=== PATIENT | female | born 1990 | race Caucasian/White ===

== ENCOUNTER 2017-04-15 20:37 | Emergency (ER) | payer MEDICAID, SELFPAY | END 2017-04-15 23:29 | disposition still patient (30) | PROVIDERS: Emergency Provider Emergency Medicine; Visit Provider Emergency Medicine | DX: R19.7 Diarrhea, unspecified (principal); E03.9 Hypothyroidism, unspecified; F17.210 Nicotine dependence, cigarettes, uncomplicated; Z79.3 Long term (current) use of hormonal contraceptives; Z79.899 Other long term (current) drug therapy | CPT/HCPCS: 74176; 80053; 81003; 81025; 82150; 83690; 85025; 96365; 96375; 99284; J2405 ==

== ENCOUNTER → 2018-01-19 13:12 | Outpatient (REF) | payer MEDICAID, SELFPAY ==
[2018-01-19 17:47] LABS: Basophils % 0.8 % (0.1-2.0); Eosinophils # 0.1 K/mm3 (0.0-0.4); Eosinophils % 1.6 % (0.1-12.0); Hematocrit 44.8 % (37.0-47.0); Hemoglobin 14.8 g/dL (12.2-16.2); Lymphocytes # 1.8 K/mm3 (0.7-4.5); Lymphocytes % 32.1 K/mm3 (10-50); Mean Platelet Volume 7.7 fl (7.4-10.4); Monocytes # 0.3 K/mm3 (0.1-1.0); Neutrophils # 3.4 K/mm3 (1.8-7.8); Neutrophils % 59.6 % (37.0-80.0); Platelet Count 385 K/mm3 (142-424); Red Blood Count 5.27 M/mm3 (4.20-5.40); Red Cell Distribution Width 13.4 % (11.5-17.5); White Blood Count 5.7 K/mm3 (4.8-10.8)
[2018-01-19 18:51] LABS: Alanine Aminotransferase 183 U/L (12-78); Albumin Level 3.7 gm/dL (3.4-5.0); Albumin/Globulin Ratio 0.9 (1.1-1.8); Alkaline Phosphatase 156 U/L (46-116); Anion Gap 15.6 mEq/L (5-15); Aspartate Amino Transferase 164 U/L (15-37); Bilirubin,Total 0.4 mg/dL (0.2-1.0); Blood Urea Nitrogen 7 mg/dL (7-18); Calcium 9.4 mg/dL (8.5-10.1); Carbon Dioxide 26 mmol/L (21.0-32.0); Chloride 105 mmol/L (98-107); Chol/HDL Ratio 5.5 (1-3.5); Cholesterol 238 mg/dL (140-200); Creatinine,Serum 0.77 mg/dL (0.55-1.02); Estimated Glomerular Filt Rate 91 ml/min (>60); GFR (African American) 110 ML/MIN (>60); Glucose 89 mg/dL (74-106); HDL Cholesterol 43 mg/dL (29-89); LDL Cholesterol 153 mg/dL (0-130); Potassium 4.6 mmoL/L (3.5-5.1); Sodium 142 mmol/L (136-145); T4 (Thyroxine) 12.1 ug/dl (4.7-13.3); Thyroid Stimulating Hormone 1.47 uIU/ml (0.358-3.740); Total Protein,Serum 7.7 gm/dL (6.4-8.2); Triglycerides 208 mg/dL (30-200); VLDL Cholesterol 42 mg/dL (0-40)
[2018-01-22 08:31] LABS: Hep A Ab, IgM Negative (Negative); Hepatitis B Core Antibody IgM Negative (Negative); Hepatitis B Surface Antigen Negative (Negative)
[2018-01-22 18:37] LABS: Vitamin D 25 Hydroxy 14.5 ng/mL (30.0-100.0)
[2018-01-22 19:10] LABS: Hepatitis C Antibody <0.1 s/co ratio (0.0-0.9)
== END ==
LOC: LAB 13:12
PROVIDERS: PCP Physician Assistant; Visit Provider Physician Assistant
DX: E03.9 Hypothyroidism, unspecified (principal); E04.1 Nontoxic single thyroid nodule; R94.5 Abnormal results of liver function studies
CPT/HCPCS: 80053; 80061; 80074; 82652; 84436; 84443; 85025

== ENCOUNTER → 2018-02-01 08:11 | Outpatient (CLI) | payer MEDICAID, SELFPAY ==
--- NOTE | 2018-02-01 08:13 | US_ITS ---
US thyroid HISTORY: ITS.REASON: Hoarseness, hypothyroidism ORDERING PHYSICIAN: MAYANK Huntley PATIENT AGE: 27 years Comparison: None FINDINGS: There the right lobe measures 4.6 x 1.5 x 1.8 cm. There is homogeneous echogenicity with no discrete nodule evident on the right. The left lobe measures 4.6 x 1.6 x 2.3 cm. No discrete nodules evident. There is questionable 8 mm nodule in the lower pole isoechoic to surrounding tissue. Consider follow-up to confirm. The isthmus is unremarkable. IMPRESSION: 1. Enlarged thyroid gland. 2. Possible ill-defined 8 mm nodule lower pole on the left. Consider follow-up in 6 months to confirm stability
== END ==
PROVIDERS: Family Provider Physician Assistant; PCP Physician Assistant; Visit Provider Physician Assistant
DX: E03.9 Hypothyroidism, unspecified (principal)
CPT/HCPCS: 76536

== ENCOUNTER → 2018-02-04 16:12 | Outpatient (CLI) | payer MEDICAID, SELFPAY ==
[2018-02-04 17:41] LABS: Free T4 (Free Thyroxine) 0.96 ng/dl (0.76-1.46); Thyroid Stimulating Hormone 1.45 uIU/ml (0.358-3.740)
[2018-02-06 18:09] LABS: Thyroid Peroxidase Antibodies 14 IU/mL (0-34)
[2018-02-08 04:06] LABS: Calcitonin <2.0 pg/mL (0.0-5.0)
[2018-02-09 07:35] LABS: Thyroid Stimulating Immunoglob 0.35 IU/L (0.00-0.55)
== END ==
PROVIDERS: PCP Physician Assistant; Visit Provider Otolaryngology
DX: E03.9 Hypothyroidism, unspecified (principal); E04.1 Nontoxic single thyroid nodule; R13.10 Dysphagia, unspecified
CPT/HCPCS: 36415; 82308; 84439; 84443; 84445; 86376

== ENCOUNTER → 2018-03-15 10:48 | Outpatient (CLI) | payer MEDICAID, SELFPAY ==
--- NOTE | 2018-03-15 10:49 | FL_ITS ---
EXAM: Barium swallow/esophagram. INDICATION: ITS.REASON: dysphagia, enlarged thyroid gland ORDERING PHYSICIAN: Anupam Garcia MD PATIENT AGE: 27 years COMPARISON: None TECHNIQUE: In the upright position the patient was observed to swallow barium in both the AP and lateral view. The cervical esophagus was examined under fluoroscopy with images obtained. The patient was then placed prone in the right anterior oblique position and was observed to swallow barium with Valsalva technique . FLUOROSCOPY TIME: 32 seconds FINDINGS: There was no evidence of aspiration. There was normal peristalsis. No filling defects or mucosal abnormalities. No masses or strictures. No evidence of hiatal hernia. The esophagus is midline within the neck with no evidence of deviation. IMPRESSION: Unremarkable barium swallow
== END ==
PROVIDERS: PCP Physician Assistant; Visit Provider Otolaryngology
DX: R13.10 Dysphagia, unspecified (principal); E03.9 Hypothyroidism, unspecified; E04.1 Nontoxic single thyroid nodule
CPT/HCPCS: 74220

== ENCOUNTER → 2019-04-20 17:53 | Outpatient (CLI) | payer MEDICAID, SELFPAY ==
[2019-04-20 18:24] LABS: Basophils % 0.8 % (0.1-2.0); Eosinophils % 0.3 % (0.1-12.0); Hematocrit 42.2 % (37.0-47.0); Hemoglobin 13.7 g/dL (12.2-16.2); Lymphocytes # 1.7 K/mm3 (0.7-4.5); Lymphocytes % 53.8 % (10-50); Mean Corpuscular HGB Conc 32.6 g/dL (31.8-35.4); Mean Corpuscular Hemoglobin 27.1 pg (27.0-31.2); Mean Platelet Volume 8.5 fl (7.4-10.4); Monocytes # 0.4 K/mm3 (0.1-1.0); Monocytes % 12.2 % (1.7-9.3); Platelet Count 317 K/mm3 (142-424); Red Blood Count 5.08 M/mm3 (4.20-5.40); Red Cell Distribution Width 14.4 % (11.5-17.5); White Blood Count 3.2 K/mm3 (4.8-10.8)
[2019-04-20 18:48] LABS: MANUAL DIFFERENTIAL MANUAL DIFFERENTIAL (MANUAL DIFF)
[2019-04-20 19:42] LABS: Lymphocytes % 40 % (10-50); Monocytes % 5 % (2-9); Neutrophils % 55 % (42-76); Platelet Estimate Normal; RBC Morphology Normal; Total Cells Counted 100
[2019-04-20 20:53] LABS: Alanine Aminotransferase 52 U/L (12-78); Albumin Level 3.5 gm/dL (3.4-5.0); Albumin/Globulin Ratio 0.9 (1.1-1.8); Alkaline Phosphatase 90 U/L (46-116); Anion Gap 14.7 mEq/L (5-15); Aspartate Amino Transferase 36 U/L (15-37); Bilirubin,Total 0.2 mg/dL (0.2-1.0); Blood Urea Nitrogen 4 mg/dL (7-18); Calcium 8.4 mg/dL (8.5-10.1); Carbon Dioxide 26 mmol/L (21.0-32.0); Chloride 101 mmol/L (98-107); Chol/HDL Ratio 5.7 (1-3.5); Cholesterol 172 mg/dL (140-200); Creatinine,Serum 0.99 mg/dL (0.55-1.02); Estimated Glomerular Filt Rate 67 ml/min (>60); GFR (African American) 81 ML/MIN (>60); Glucose 83 mg/dL (74-106); HDL Cholesterol 30 mg/dL (29-89); LDL Cholesterol 118 mg/dL (0-130); Potassium 3.7 mmoL/L (3.5-5.1); Sodium 138 mmol/L (136-145); T4 (Thyroxine) 9.1 ug/dl (4.7-13.3); Thyroid Stimulating Hormone 2.75 uIU/ml (0.358-3.740); Total Protein,Serum 7.5 gm/dL (6.4-8.2); Triglycerides 122 mg/dL (30-200); VLDL Cholesterol 24 mg/dL (0-40)
[2019-04-22 16:29] LABS: Vitamin D 25 Hydroxy 39.9 ng/mL (30.0-100.0)
== END ==
PROVIDERS: Visit Provider Physician Assistant
DX: E03.9 Hypothyroidism, unspecified (principal); E55.9 Vitamin D deficiency, unspecified
CPT/HCPCS: 80053; 80061; 82652; 84436; 84443; 85007; 85025

== ENCOUNTER 2021-03-21 17:00 | Outpatient (RCR) | payer MEDICAID, SELFPAY | END 2021-03-21 17:05 | disposition home or self-care (01) | LOC: PT 17:00 | PROVIDERS: Visit Provider Orthopaedic Surgery Adult Reconstructive Orthopaedic Surgery | DX: M76.52 Patellar tendinitis, left knee (principal) | CPT/HCPCS: 97014; 97110; 97163; G0283 ==

== ENCOUNTER 2021-07-08 23:24 | Emergency (ER) | payer MEDICAID, SELFPAY ==
--- NOTE | 2021-07-08 23:21 | ECG_ITS ---
APPROVED REPORT Exam: Resting ECG HR:81 bpm ECG Measurements Heart Rate 81 AXES SD 144 P 42 QRSd 100 QRS 83 QT 378 T 67 QTc 415 Conclusion SINUS RHYTHM NORMAL ECG UNCONFIRMED REPORT Electronically signed by : Tuan Perez MD 07/10/2021 17:51:22
[2021-07-08 23:24] VITALS: BP 143/83; PULSE 81; RESP 22; TEMP 37; O2SAT 98; BMI 47.5
[2021-07-08 23:26] VITALS: BMI 47.5
--- NOTE | 2021-07-08 23:26 | XR_ITS ---
PROCEDURE INFORMATION: Exam: XR Chest Exam date and time: 07/08/2021 11:26 PM Age: 30 years old Clinical indication: Sternal or substernal pain; Additional info: Chest pain TECHNIQUE: Imaging protocol: XR of the chest. Views: 2 views. COMPARISON: CR XR CHEST 2V 06/13/2019 8:24 AM FINDINGS: Lungs: Unremarkable. No consolidation. Pleural spaces: Unremarkable. No pleural effusion. No pneumothorax. Heart/Mediastinum: Unremarkable. No cardiomegaly. Bones/joints: Unremarkable. IMPRESSION: No evidence of acute intrathoracic disease.
[2021-07-08 23:30] VITALS: BP 127/76; PULSE 79; RESP 17; O2SAT 100
--- NOTE | 2021-07-08 23:33 | PC.NURSE ---
Warm blankets given to pt per request.
[2021-07-08 23:39] LABS: Basophils # 0.3 K/mm3 (0-0.2); Basophils % 2.3 % (0.1-2.0); Eosinophils # 0.1 K/mm3 (0.0-0.4); Eosinophils % 0.4 % (0.1-12.0); Hematocrit 44.1 % (37.0-47.0); Hemoglobin 13.9 g/dL (12.2-16.2); Lymphocytes # 3.5 K/mm3 (0.7-4.5); Lymphocytes % 29.5 % (10-50); Mean Corpuscular HGB Conc 31.5 g/dL (31.8-35.4); Mean Corpuscular Hemoglobin 26.5 pg (27.0-31.2); Mean Corpuscular Volume 84.1 fl (81-99); Mean Platelet Volume 7.7 fl (7.4-10.4); Monocytes # 0.5 K/mm3 (0.1-1.0); Monocytes % 4.3 % (1.7-9.3); Neutrophils # 7.6 K/mm3 (1.8-7.8); Neutrophils % 63.5 % (37.0-80.0); Platelet Count 495 K/mm3 (142-424); Red Blood Count 5.24 M/mm3 (4.20-5.40); Red Cell Distribution Width 15.7 % (11.5-17.5)
[2021-07-08 23:45] VITALS: BP 143/88; PULSE 80; RESP 21; O2SAT 98
--- NOTE | 2021-07-08 23:48 | PC.NURSE ---
NITRO ADMINISTRATION NOTE. PT RATES PAIN 8/10. BP 143/88 HR 86. 5 MINUTES POST ADMINISTRATION PT RATES PAIN 6/10.
[2021-07-08 23:49] LABS: HCG Qualitative, Serum Negative (Negative)
[2021-07-08 23:50] LABS: Microscopic, Urine URINE MICROSCOPIC (MICROSCOPIC)
[2021-07-08 23:54] LABS: Anion Gap 12.3 mEq/L (5-15); Blood Urea Nitrogen 9 mg/dl (7-17); Calcium 9.3 mg/dl (8.4-10.2); Carbon Dioxide 26 mmol/L (22.0-30.0); Chloride 102 mmol/L (98-107); Creatinine Clearance Estimated 94 mL/min (50-200); Estimated Glomerular Filt Rate 99 ml/min (>60); GFR (African American) 120 ML/MIN (>60); Glucose 121 mg/dl (74-100); Potassium 3.3 mmoL/L (3.5-5.1); Sodium 137 mmol/L (136-145)
[2021-07-09 00:04] LABS: Appearance,Urine CLEAR (Clear); Bilirubin,Urine Negative (Negative); Blood, Urine 2+ (Negative); Color,Urine YELLOW (Yellow); Glucose,Urine (UA) Negative (Negative); Ketones,Urine Negative (Negative); Leukocyte Esterase,Urine 2+ (Negative); Nitrate,Urine Negative (Negative); PH,Urine 6.5 (5.0-8.5); Protein,Urine Negative (Negative); Urobilinogen,Urine 0.2 EU/dl (0.2)
--- NOTE | 2021-07-09 00:09 | HMH.EDCP ---
ED Disposition Clinical Impression: Atypical chest pain UTI (urinary tract infection) Qualifiers: Urinary tract infection type: site unspecified Hematuria presence: without hematuria Qualified Code(s): N39.0 - Urinary tract infection, site not specified Disposition: Home, Self-Care Condition on Discharge: Good Instructions: DI for Atypical Chest Pain Additional Instructions: see pcp and follow up for urine culture results Prescriptions: levoFLOXacin [Levaquin 500mg tab] 500 mg PO DAILY #7 tab Transmission Status: Pending to [facility] Referrals: Nhung Giles PA [Primary Care Provider] - - Critical Care Critical Care Time: No Attestation: On 07/08/21, the high probability of a clinically significant, sudden or life threatening deterioration of the following system(s) required my full and direct attention, intervention and personal management. The time I documented below is in addition to time spent performing reported procedures but includes the following listed in this critical care notation. Medical Decision Making - Medical Records Medical records reviewed: Yes: I reviewed the patient's medical records. - Augustin Inquiry Pt receiving controlled substance: No Vital Signs: 07/08/21 23:24 Temperature 98.6 F Temperature Source Oral Pulse Rate [Right Radial] 81 Respiratory Rate 22 Blood Pressure [Left Arm] 143/83 H Blood Pressure Mean [Left Arm] 103 Blood Pressure Source [Left Arm] Automatic Cuff Blood Pressure Position [Left Arm] Sitting 02 Sat by Pulse Oximetry 98 Oxygen Delivery Method Room Air - Lab Data Lab results reviewed: Yes: I reviewed the patient's lab results. Lab Results 07/08/21 23:27: WBC 12.0 H, RBC 5.24, Hgb 13.9, Hct 44.1, MCV 84.1, MCH 26.5 L, MCHC 31.5 L, RDW 15.7, Plt Count 495 H, MPV 7.7, Neut % (Auto) 63.5, Lymph % (Auto) 29.5, [place] % (Auto) 4.3, Eos % (Auto) 0.4, Baso % (Auto) 2.3 H, Neut # (Auto) 7.6, Lymph # (Auto) 3.5, [place] # (Auto) 0.5, Eos # (Auto) 0.1, Baso # (Auto) 0.3 H, ESR 81 H 07/08/21 23:27: Sodium 137, Potassium 3.3 L, Chloride 102, Carbon Dioxide 26, Anion Gap 12.3, BUN 9, Creatinine 0.70, Estimated Creat Clear 94, Estimated GFR 99, Est GFR ( Amer) 120, Glucose 121 H, Calcium 9.3, Troponin I < 0.01, C-Reactive Protein 17.0 H 07/08/21 23:27: Serum HCG, Qual Negative 07/08/21 23:27: Procalcitonin 0.048 07/08/21 23:45: Urine Opiates Screen Negative, Urine Methadone Screen Negative, Ur Barbituates Screen Negative, Ur Phencyclidine Scrn Negative, Ur Amphetamines Screen Negative, U Benzodiazepines Scrn Negative, Urine Cocaine Screen Negative, U Marijuana (THC) Screen Negative 07/08/21 23:45: Urine Color Yellow, Urine Appearance Clear, Urine pH 6.5, Ur Specific Notrees 1.010, Urine Protein Negative, Urine Glucose (UA) Negative, Urine Ketones Negative, Urine Blood 2+, Urine Nitrate Negative, Urine Bilirubin Negative, Urine Urobilinogen 0.2, Ur Leukocyte Esterase 2+ A, Urine RBC 3-5, Urine WBC 3-5, Ur Squamous Epith Cells 3-5, Urine Bacteria 2+, Urine Mucus 1+ 07/09/21 00:00: Thyroxine (T4) 10.4 Result diagrams: 07/08/21 23:27 07/08/21 23:27 Orders (Tests/Meds): ED MEDICATIONS Generic Name Dose Route Start Last Admin Trade Name Freq PRN Reason Stop Dose Admin Sodium Chloride 1,000 mls @ 999 mls/hr 07/08/21 23:30 07/08/21 23:39 Sod Chlor 0.9% 1000ml Bag IV 07/09/21 00:30 999 mls/hr .Q1H1M MADDISON Administration Discontinued Medications Generic Name Dose Route Start Last Admin Trade Name Freq PRN Reason Stop Dose Admin Aspirin 324 mg 07/08/21 23:28 07/08/21 23:38 Aspirin 81mg Chewable Tablet PO 07/08/21 23:29 324 mg ONCE ONE Administration Ketorolac Tromethamine 30 mg 07/08/21 23:53 07/08/21 23:54 Ketorolac 30mg/Ml Vial IV 07/08/21 23:54 30 mg ONCE ONE Administration Nitroglycerin 0.4 mg 07/08/21 23:29 07/08/21 23:39 Nitroglycerin 0.4mg Sl Tablet SL 07/08/21 23:30 1 tab ONCE ONE Administra
[2021-07-09 00:13] LABS: Barbiturates Screen,Urine Negative ng/ml (<200)
[2021-07-09 00:14] LABS: Procalcitonin 0.048 ng/mL (0.0-2.0)
[2021-07-09 00:14] LABS: Amphetamine/Metha Screen,Urine Negative ng/ml (<1000); Benzodiazepines Screen,Urine Negative ng/ml (<200)
[2021-07-09 00:15] LABS: Cannabinoid Screen,Urine Negative ng/ml (<50)
[2021-07-09 00:16] LABS: Troponin I < 0.01 ng/ml (0.00-0.034)
[2021-07-09 00:16] LABS: Cocaine Screen,Urine Negative ng/ml (<300); Methadone Screen,Urine Negative ng/ml (<300)
[2021-07-09 00:17] LABS: Opiate Screen,Urine Negative ng/ml (<300)
[2021-07-09 00:18] LABS: Phencyclidine Screen,Urine Negative ng/ml (<25)
[2021-07-09 00:21] LABS: Bacteria,Urine 2+ /lpf; Mucus,Urine 1+ /lpf
[2021-07-09 00:30] VITALS: BP 104/57; PULSE 78; RESP 22; O2SAT 98
[2021-07-09 00:45] LABS: T4 (Thyroxine) 10.4 ug/dl (5.53-11.0)
[2021-07-09 00:46] LABS: Erythrocyte Sedimentation Rate 81 mm/hr (0-20)
[2021-07-09 00:56] LABS: Thyroid Stimulating Hormone 8.67 uIU/mL (0.465-4.68)
[2021-07-09 01:03] VITALS: BP 120/41; PULSE 83; RESP 18; TEMP 36.7; O2SAT 98
== END 2021-07-09 01:11 | disposition home or self-care (01) ==
PROVIDERS: Emergency Provider Emergency Medicine; PCP Physician Assistant
DX: R07.89 Other chest pain (principal); N39.0 Urinary tract infection, site not specified; J01.90 Acute sinusitis, unspecified; K21.9 Gastro-esophageal reflux disease without esophagitis; E03.9 Hypothyroidism, unspecified; K58.9 Irritable bowel syndrome, unspecified; F32.A Depression, unspecified; F41.9 Anxiety disorder, unspecified; Z79.899 Other long term (current) drug therapy; F17.210 Nicotine dependence, cigarettes, uncomplicated; Z82.49 Family history of ischemic heart disease and other diseases of the circulatory system; Z83.2 Family history of diseases of the blood and blood-forming organs and certain disorders involving the immune mechanism
CPT/HCPCS: 71046; 80048; 80305; 81001; 84145; 84436; 84443; 84484; 84703; 85025; 85651; 86140; 87086; 93005; 96361; 96365; 96366; 96374; 96375; 99284; J0696

== ENCOUNTER → 2021-10-17 06:59 | Outpatient (CLI) | payer MEDICAID, SELFPAY ==
[2021-10-16 18:02] LABS: Basophils # 0.1 K/mm3 (0-0.2); Basophils % 1.4 % (0.1-2.0); Eosinophils # 0.1 K/mm3 (0.0-0.4); Hematocrit 41.3 % (37.0-47.0); Hemoglobin 13.8 g/dL (12.2-16.2); Lymphocytes # 2.3 K/mm3 (0.7-4.5); Lymphocytes % 22.2 % (10-50); Mean Corpuscular HGB Conc 33.4 g/dL (31.8-35.4); Mean Corpuscular Hemoglobin 26.3 pg (27.0-31.2); Mean Corpuscular Volume 78.8 fl (81-99); Mean Platelet Volume 8.3 fl (7.4-10.4); Monocytes # 0.5 K/mm3 (0.1-1.0); Monocytes % 4.7 % (1.7-9.3); Neutrophils # 7.3 K/mm3 (1.8-7.8); Neutrophils % 70.7 % (37.0-80.0); Platelet Count 470 K/mm3 (142-424); Red Blood Count 5.24 M/mm3 (4.20-5.40); Red Cell Distribution Width 16.1 % (11.5-17.5); White Blood Count 10.3 K/mm3 (4.8-10.8)
[2021-10-16 18:09] LABS: Alanine Aminotransferase 30 U/L (12-78); Albumin Level 4.1 g/dl (3.5-5.0); Albumin/Globulin Ratio 1.2 (1.1-1.8); Alkaline Phosphatase 96 U/L (38-126); Anion Gap 13.3 mEq/L (5-15); Aspartate Amino Transferase 34 U/L (14-36); Blood Urea Nitrogen 6 mg/dl (7-17); Calcium 9.6 mg/dl (8.4-10.2); Carbon Dioxide 26 mmol/L (22.0-30.0); Chloride 103 mmol/L (98-107); Chol/HDL Ratio 5.5 (1-3.5); Cholesterol 205 mg/dl (140-200); Estimated Glomerular Filt Rate 84 ml/min (>60); GFR (African American) 102 ML/MIN (>60); Globulin 3.3 g/dL (1.3-3.2); Glucose 106 mg/dl (74-100); HDL Cholesterol 37 mg/dl (40-60); Potassium 4.3 mmoL/L (3.5-5.1); Sodium 138 mmol/L (136-145); Total Protein,Serum 7.4 g/dl (6.3-8.2); Triglycerides 174 mg/dl (30-150); VLDL Cholesterol 35 mg/dL (0-40)
[2021-10-16 18:12] LABS: Bilirubin,Total 0.1 mg/dl (0.2-1.3)
[2021-10-16 18:21] LABS: Direct LDL Cholesterol 125.97 mg/dL (100-129)
[2021-10-16 18:25] LABS: 25-OH Vitamin D, Total 26.2 ng/mL (30-100)
[2021-10-16 18:37] LABS: HCG,Quantitative < 2 mIU/ml (0-5.42)
[2021-10-16 18:41] LABS: Thyroid Stimulating Hormone 2.14 uIU/mL (0.465-4.68)
[2021-10-16 19:00] LABS: Vitamin B12 237 pg/mL (239-931)
== END ==
PROVIDERS: PCP Physician Assistant; Visit Provider Physician Assistant
DX: E03.9 Hypothyroidism, unspecified (principal); Z32.00 Encounter for pregnancy test, result unknown
CPT/HCPCS: 80053; 80061; 82306; 82607; 84443; 84702; 85025

== ENCOUNTER 2021-11-13 09:45 | Emergency (ER) | payer MEDICAID, SELFPAY ==
[2021-11-13 09:50] VITALS: BP 135/84; PULSE 70; RESP 20; TEMP 36.8; O2SAT 95; BMI 45.4
--- NOTE | 2021-11-13 10:01 | HMH.EDUTC ---
[facility] [place] Clinical Impression: Garcia by, chemical Disposition: Home, Self-Care Condition on Discharge: Good Instructions: DI for Garcia, Garcia, Silver Sulfadiazine Additional Instructions: Clean garcia on ears at least twice daily with antibacterial soap and water and apply cream as prescribed Start oral steriod tomorrow for rash DO NOT USE OVER THE COUNTER HAIR DYE ON YOU HAIR EACH REACTION WITH CONTINUE TO GET WORSE Straight to ER if any life threatening symptoms Follow up with your Family Doctor if any worsening of symptoms and infection Prescriptions: cephALEXin [cephALEXin 500mg capsule*] 500 mg PO Q8H 7 Days #21 cap Transmission Status: Received by [facility] methylPREDNISolone [Medrol 4mg tab] 4 mg PO DIRECTED #21 tab Transmission Status: Received by [facility] Silver Sulfadiazine [Silvadene Cream 50gm] 1 applic TP BID #50 gm Transmission Status: Received by [facility] Referrals: Nhung Giles PA [Primary Care Provider] - As needed Time of Disposition: 10:21 Medical Decision Making - Augustin Inquiry Pt receiving controlled substance: No Augustin was queried for this patient: No Vital Signs: 11/13/21 09:50 11/13/21 10:22 Temperature 98.2 F 98.2 F Temperature Source Oral Pulse Rate 70 Pulse Rate [Right Brachial] 70 Respiratory Rate 20 20 Blood Pressure 135/84 Blood Pressure [Right Arm] 135/84 Blood Pressure Mean [Right Arm] 101 Blood Pressure Source [Right Arm] Automatic Cuff Blood Pressure Position [Right Arm] Sitting 02 Sat by Pulse Oximetry 95 Oxygen Delivery Method Room Air Orders (Tests/Meds): ED MEDICATIONS Discontinued Medications Generic Name Dose Route Start Last Admin Trade Name Ruth PRN Reason Stop Dose Admin Methylprednisolone Sodium Succinate 125 mg 11/13/21 10:12 11/13/21 10:20 Methylprednisolone Sod Succ 125mg Vial IM 11/13/21 10:13 125 mg ONCE ONE Administration Medical Decision Narrative: Medication discussed with pharmacy [facility] [place] - General Stated complaint: bilateral ear pain Time Seen by Provider: 11/13/21 10:01 Mode of Arrival: Ambulatory Source of Information: Patient Limitations: No Limitations Description of Symptoms (Recalled from Triage Doc. by RN): PATIENT C/O POSSIBLE CHEMICAL GARCIA TO BILATERAL EARS. BLISTERS AND SWELLING NOTED TO AREAS HEENT Symptoms (Recalled from RN notes): No Resp Symptoms (Recalled from RN notes): No Skin Symptoms (Recalled from RN notes): Yes MS Symptoms (Recalled from RN notes): No Functional Status (Recalled from RN notes): WNL - History of Present Illness Provider Complaint: Patient states that she used hair dye to dye her hair and she said her scalp started itching and she noticed she was breaking out in rash around her hairline and she was having burning feeling on the lobes of both ears States that then she noticed she looked like she had chemical garcia to both external ears with hives and rash on scalp and back of neck so she came in to get checked - Related Data Home Medications Medication Instructions Recorded Confirmed Levothyroxine Sodium [Synthroid See Rx Instructions .ROUTE .COMPLEX 07/09/21 10/16/21 50mcg (0.05mg) tab] Omeprazole See Rx Instructions .ROUTE .COMPLEX 07/09/21 10/16/21 Quetiapine Fumarate See Rx Instructions .ROUTE .COMPLEX 07/09/21 10/16/21 Previous Rx's Medication Instructions Recorded paroxetine HCl 10 mg tablet See Rx Instructions .ROUTE 08/15/21 .COMPLEX #90 tablet cariprazine 1.5 mg capsule 1.5 mg PO DAILY #30 cap 10/16/21 norethindrone-e.estradiol 1 tab PO DAILY #28 tab 10/16/21 triphasic 0.5 mg/0.75 mg/1 mg-35 mcg tablet paroxetine HCl 20 mg tablet 20 mg PO QAM 90 Days #90 tab 10/16/21 cholecalciferol (vitamin D3) 25 1,000 unit PO ONCE #90 cap 10/17/21 mcg (1,000 unit) capsule ergocalciferol (vitamin D2) 1,250 1,250 mcg PO WEEKLY #14 cap 10/17/21 mcg (50,000 unit) capsule Silver Sulfadiazine [Silv
[2021-11-13 10:22] VITALS: BP 135/84; PULSE 70; RESP 20; TEMP 36.8; O2SAT 95
== END 2021-11-13 10:35 | disposition home or self-care (01) ==
PROVIDERS: Emergency Provider Nurse Practitioner; PCP Physician Assistant
DX: T20.512A Corrosion of first degree of left ear [any part, except ear drum], initial encounter (principal); T20.511A Corrosion of first degree of right ear [any part, except ear drum], initial encounter; T32.0 Corrosions involving less than 10% of body surface
CPT/HCPCS: 99212; G0463

== ENCOUNTER 2021-12-01 16:34 | Emergency (ER) | payer MEDICAID, SELFPAY ==
--- NOTE | 2021-12-01 17:39 | HMH.EDUTC ---
[facility] [place] Disposition Clinical Impression: Gastroenteritis Disposition: Home, Self-Care Condition on Discharge: Good Instructions: Viral Gastroenteritis, DI for Viral Gastroenteritis -- Adult, Gastroenteritis Diet, Ondansetron Additional Instructions: Drink plenty of fluids. Take tylenol or ibuprofen for pain or fever. Take the medications as directed. Follow up with your regular doctor. GO TO THE ER FOR ANY WORSENING SYMPTOMS She has gastroenteritis (stomach virus) and her symptoms began 2 days ago, so she needs to be excused from work on 11/30 until 12/03 Prescriptions: Ondansetron [Zofran 4mg ODT] 4 mg PO Q8HP PRN #20 tab PRN Reason: Nausea Transmission Status: Received by [facility] Referrals: Nhung Giles PA [Primary Care Provider] - Forms: Work/School Release Time of Disposition: 17:40 Medical Decision Making - Medical Records Medical records reviewed: No: I reviewed the patient's medical records. - Augustin Inquiry Pt receiving controlled substance: No Vital Signs: 12/01/21 17:43 12/01/21 17:46 Temperature 97.5 F L 97.5 F L Temperature Source Oral Pulse Rate 82 Pulse Rate [Left] 82 Respiratory Rate 15 15 Blood Pressure 133/85 Blood Pressure [Right Arm] 133/85 Blood Pressure Mean [Right Arm] 101 02 Sat by Pulse Oximetry 98 Orders (Tests/Meds): ED MEDICATIONS Discontinued Medications Generic Name Dose Route Start Last Admin Trade Name Freq PRN Reason Stop Dose Admin Ondansetron HCl 4 mg 12/01/21 17:40 12/01/21 17:43 Ondansetron 4mg Odt SL 12/01/21 17:41 4 mg ONCE ONE Administration [facility] [place] HPI - General Stated complaint: V&D Time Seen by Provider: 12/01/21 17:45 - History of Present Illness Provider Complaint: She has had n/v/d since yesterday. she denies any abdominal pain. She denies any cough, congestion or chest pain. - Related Data Home Medications Medication Instructions Recorded Confirmed Quetiapine Fumarate See Rx Instructions .ROUTE .COMPLEX 07/09/21 10/16/21 Previous Rx's Medication Instructions Recorded paroxetine HCl 10 mg tablet See Rx Instructions .ROUTE 08/15/21 .COMPLEX #90 tablet cariprazine 1.5 mg capsule 1.5 mg PO DAILY #30 cap 10/16/21 norethindrone-e.estradiol 1 tab PO DAILY #28 tab 10/16/21 triphasic 0.5 mg/0.75 mg/1 mg-35 mcg tablet paroxetine HCl 20 mg tablet 20 mg PO QAM 90 Days #90 tab 10/16/21 cholecalciferol (vitamin D3) 25 1,000 unit PO ONCE #90 cap 10/17/21 mcg (1,000 unit) capsule ergocalciferol (vitamin D2) 1,250 1,250 mcg PO WEEKLY #14 cap 10/17/21 mcg (50,000 unit) capsule Silver Sulfadiazine [Silvadene 1 applic TP BID #50 gm 11/13/21 Cream 50gm] cephALEXin [cephALEXin 500mg 500 mg PO Q8H 7 Days #21 cap 11/13/21 capsule*] methylPREDNISolone [Medrol 4mg 4 mg PO DIRECTED #21 tab 11/13/21 tab] levothyroxine 50 mcg tablet See Rx Instructions .ROUTE 11/25/21 .COMPLEX #90 tablet omeprazole 40 mg capsule,delayed See Rx Instructions .ROUTE 11/25/21 release .COMPLEX #90 capsule Ondansetron [Zofran 4mg ODT] 4 mg PO Q8HP PRN #20 tab 12/01/21 Allergies Allergy/AdvReac Type Severity Reaction Status Date / Time No Known Allergies Allergy Verified 10/16/21 15:24 [facility] History - Hepatitis A Screen Attestation statement:: This patient has been screened for Hepatitis A risk factors. I have reviewed the patient's past medical history: Yes Medical History: Reports:: Anxiety, Depression, Gastroesophageal Reflux Disease(GERD) Other Medical History: Reports: Hypothyroidism Comment: IBS Laterality Cases: Bilateral: Tonsillectomy Other Surgeries: Yes: Cholecystectomy Amputation: No Fractures: No Comment: Rt neck cyst removal, gallbladder - 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 Smoking Status: Current every day smoker Tobacco Type: cigarettes # Packs/Day (cigarettes): 1 Alcohol Intake: never Alcohol Intake Frequency:: holidays/special occasions only Substance Use T
[2021-12-01 17:43] VITALS: BP 133/85; PULSE 82; RESP 15; TEMP 36.4; O2SAT 98; BMI 47.5
[2021-12-01 17:46] VITALS: BP 133/85; PULSE 82; RESP 15; TEMP 36.4
== END 2021-12-01 17:46 | disposition home or self-care (01) ==
PROVIDERS: Emergency Provider Nurse Practitioner Family; PCP Physician Assistant
DX: K52.9 Noninfective gastroenteritis and colitis, unspecified (principal)
CPT/HCPCS: 99212; G0463

== ENCOUNTER 2022-01-24 12:24 | Emergency (ER) | payer MEDICAID, SELFPAY ==
[2022-01-24 12:42] VITALS: BP 153/67; PULSE 84; RESP 16; TEMP 37; O2SAT 98; BMI 45.7
--- NOTE | 2022-01-24 13:03 | EXP.UTC ---
Discharge Plan Disposition Patient Disposition: Home, Self-Care Condition: Good Prescriptions Prescriptions: New benzonatate [benzonatate] 100 mg capsule 100 mg PO TIDP PRN (Reason: Cough) Qty: 30 0RF ondansetron 4 mg Tablet,Disintegrating 4 mg PO Q8H PRN (Reason: Nausea) Qty: 20 0RF No Action norethin-e.estradiol triphasic 0.5/0.75/1 mg- 35 mcg tablet 1 tab PO DAILY Qty: 28 12RF Vraylar 1.5 mg capsule 1.5 mg PO DAILY Qty: 30 2RF paroxetine HCl [Paxil] 20 mg tablet 20 mg PO QAM 90 Days Qty: 90 0RF paroxetine HCl 10 mg tablet See Rx Instructions .ROUTE .COMPLEX Qty: 90 0RF Dose Instruction: TAKE 1 TABLET BY MOUTH ONCE DAILY Rx Instructions: TAKE 1 TABLET BY MOUTH ONCE DAILY cholecalciferol (vitamin D3) 25 mcg (1,000 unit) capsule 1,000 unit PO ONCE Qty: 90 0RF Rx Instructions: administer with meals ergocalciferol (vitamin D2) 1,250 mcg (50,000 unit) capsule 1,250 mcg PO WEEKLY Qty: 14 0RF omeprazole 40 mg capsule,delayed release(DR/EC) See Rx Instructions .ROUTE .COMPLEX Qty: 90 2RF Dose Instruction: TAKE 1 CAPSULE BY MOUTH ONCE DAILY FOR GERD Rx Instructions: TAKE 1 CAPSULE BY MOUTH ONCE DAILY FOR GERD levothyroxine 50 mcg tablet See Rx Instructions .ROUTE .COMPLEX Qty: 90 2RF Dose Instruction: TAKE ONE TABLET BY MOUTH EVERY DAY Rx Instructions: TAKE ONE TABLET BY MOUTH EVERY DAY silver sulfadiazine 50 GM bottle 1 applic TP BID Qty: 50 0RF Rx Instructions: apply to rodriguez on earlobe methylprednisolone 4 MG tablet 4 mg PO DIRECTED Qty: 21 0RF Rx Instructions: Take as directed on package instructions Start on 11/14/21 cephalexin 500 MG capsule 500 mg PO Q8H 7 Days Qty: 21 0RF ondansetron 4 MG tablet,disintegrating 4 mg PO Q8HP PRN (Reason: Nausea) Qty: 20 0RF quetiapine 25 MG tablet See Rx Instructions .Route .COMPLEX Rx Instructions: TAKE 1 TABLET BY MOUTH ONCE DAILY Referrals Follow up/Referrals: Nhung Giles PA [Primary Care Provider] - See instructions Activity Restrictions/Add. Instructions Additional Instructions/Restrictions: Drink plenty of fluids. Take tylenol or ibuprofen for pain or fever. Take the medications as directed. Follow up with your regular doctor. GO TO THE ER FOR ANY WORSENING SYMPTOMS Quarantine until you know the results of your covid-19 test. Notify your school or workplace of your results and follow their instructions regarding return to work/school. Clinical Impressions Clinical Impression: Viral syndrome, Exposure to 2019 novel coronavirus Stand Alone Forms Stand Alone Forms: Work/School Release Instructions Patient Instructions: Preventing the Spread of Coronavirus Discharge Instructions Discharge ED Provider: Jimmie Cast [facility] [place] HPI General Stated complaint: Covid exposure, Covid test Mode of Arrival: Ambulatory Source of Information: Patient Limitations: No Limitations Time Seen by Provider: 01/24/22 13:04 Description of Symptoms (Recalled from Triage Doc. by RN): pt comes in for covid test. pt was exposed and has a cough. HEENT Symptoms (Recalled from RN notes): No Resp Symptoms (Recalled from RN notes): Yes Skin Symptoms (Recalled from RN notes): No MS Symptoms (Recalled from RN notes): No Functional Status (Recalled from RN notes): n/a History of Present Illness Provider Complaint: She is here needing a covid test. She was exposed about 5 days ago. Since yesterday she has had body aches, sore throat, and she has felt bad. Related Data Home Medications Medication Instructions Recorded Confirmed quetiapine 25 mg tablet See Rx Instructions .Route 07/09/21 10/16/21 .COMPLEX Depression Previous Rx's Medication Instructions Recorded paroxetine HCl 10 mg tablet See Rx Instructions .Route 08/15/21 .COMPLEX #90 tabs cariprazine 1.5 mg capsule 1.5 mg PO DAILY #30 caps 10/16/21 (Vr
[2022-01-24 13:41] VITALS: BP 153/67; PULSE 84; RESP 16; TEMP 37
== END 2022-01-24 13:47 | disposition home or self-care (01) ==
PROVIDERS: Emergency Provider Nurse Practitioner Family; PCP Physician Assistant
DX: U07.1 COVID-19 (principal)
CPT/HCPCS: 99212; C9803; G0463; U0003; U0005

== ENCOUNTER 2022-04-22 10:10 | Emergency (ER) | payer MEDICAID, SELFPAY ==
[2022-04-22 10:10] VITALS: BP 144/78; PULSE 75; RESP 20; TEMP 37.1; O2SAT 98; BMI 45.7
--- NOTE | 2022-04-22 10:10 | ECG_ITS ---
APPROVED REPORT Exam: Resting ECG HR:70 bpm ECG Measurements Heart Rate 70 AXES GA 158 P 16 QRSd 97 QRS 82 QT 394 T 61 QTc 415 Conclusion SINUS RHYTHM NORMAL ECG UNCONFIRMED REPORT Electronically signed by : Tuan Perez MD 04/22/2022 22:14:34
--- NOTE | 2022-04-22 10:24 | XR_ITS ---
FINAL REPORT CLINICAL HISTORY: CP/SOA. patient shielded COMPARISON: July 2021 FINDINGS: The heart size is normal. The mediastinum is within normal limits. There is mild right lung base opacity. There is no pleural effusion. There is no pneumothorax. The bony thorax is intact. IMPRESSION: Mild right base opacity favors atelectasis over pneumonia. Reviewed, Interpreted and Dictated by Fabian Parra III, MD Transcribed by Roscoe Ellis Authenticated and [facility]
--- NOTE | 2022-04-22 10:26 | HMH.EDGENADL ---
Discharge Plan Disposition Patient Disposition: Left Against Medical Advice Condition: Good Prescriptions Prescriptions: No Action norethin-e.estradiol triphasic 0.5/0.75/1 mg- 35 mcg tablet 1 tab PO DAILY Qty: 28 12RF paroxetine HCl 10 mg tablet See Rx Instructions .ROUTE .COMPLEX Qty: 90 0RF Dose Instruction: TAKE 1 TABLET BY MOUTH ONCE DAILY Rx Instructions: TAKE 1 TABLET BY MOUTH ONCE DAILY cholecalciferol (vitamin D3) 25 mcg (1,000 unit) capsule 1,000 unit PO ONCE Qty: 90 0RF Rx Instructions: administer with meals ergocalciferol (vitamin D2) 1,250 mcg (50,000 unit) capsule 1,250 mcg PO WEEKLY Qty: 14 0RF omeprazole 40 mg capsule,delayed release(DR/EC) See Rx Instructions .ROUTE .COMPLEX Qty: 90 2RF Dose Instruction: TAKE 1 CAPSULE BY MOUTH ONCE DAILY FOR GERD Rx Instructions: TAKE 1 CAPSULE BY MOUTH ONCE DAILY FOR GERD levothyroxine 50 mcg tablet See Rx Instructions .ROUTE .COMPLEX Qty: 90 2RF Dose Instruction: TAKE ONE TABLET BY MOUTH EVERY DAY Rx Instructions: TAKE ONE TABLET BY MOUTH EVERY DAY paroxetine HCl 20 mg tablet See Rx Instructions .ROUTE .COMPLEX Qty: 90 0RF Dose Instruction: TAKE 1 TABLET BY MOUTH EVERY MORNING Rx Instructions: TAKE 1 TABLET BY MOUTH EVERY MORNING Vraylar 1.5 mg capsule See Rx Instructions .ROUTE .COMPLEX Qty: 30 1RF Dose Instruction: TAKE 1 CAPSULE BY MOUTH ONCE DAILY Rx Instructions: TAKE 1 CAPSULE BY MOUTH ONCE DAILY [id number] [Bromfed DM] 2-30-10 mg/5 mL syrup 5 ml PO Q6H PRN (Reason: cold symptoms) Qty: 180 0RF prednisone 20 mg tablet 20 mg PO BID Qty: 10 0RF Rx Instructions: administer with food or milk ondansetron 4 MG tablet,disintegrating 4 mg PO Q8HP PRN (Reason: Nausea) Qty: 20 0RF quetiapine 25 MG tablet See Rx Instructions .Route .COMPLEX Rx Instructions: TAKE 1 TABLET BY MOUTH ONCE DAILY Referrals Follow up/Referrals: Provider,Referral, MD [Referring] - See instructions Clinical Impressions Clinical Impression: Left against medical advice, Atypical chest pain Discharge ED Provider: Nidia Edwards General Adult HPI General Chief complaint: Chest Pain Stated complaint: chest pain Time Seen by Provider: 04/22/22 10:16 History of Present Illness HPI narrative: This patient is a 31-year-old female with smoking history and hypothyroidism presenting to the emergency department for evaluation of midsternal chest pain for 3 days. She states that it is sharp and pleuritic. It comes and goes suddenly. Nothing seems to make it better or worse. Nothing seems to bring it on. She also complains of shortness of breath when the chest pain is present. She has had several days of cough, congestion, nausea, vomiting, and myalgias. No other concerns noted at this time. Related Data Home Medications Medication Instructions Recorded Confirmed quetiapine 25 mg tablet See Rx Instructions .Route 07/09/21 04/01/22 .COMPLEX Depression Previous Rx's Medication Instructions Recorded paroxetine HCl 10 mg tablet See Rx Instructions .Route 08/15/21 .COMPLEX #90 tabs norethindrone-e.estradiol 1 tab PO DAILY #28 tabs 10/16/21 triphasic 0.5 mg/0.75 mg/1 mg-35 mcg tablet cholecalciferol (vitamin D3) 25 1,000 unit PO ONCE Supplement #90 10/17/21 mcg (1,000 unit) capsule caps ergocalciferol (vitamin D2) 1,250 1,250 mcg PO WEEKLY Supplement #14 10/17/21 mcg (50,000 unit) capsule caps levothyroxine 50 mcg tablet See Rx Instructions .Route 11/25/21 .COMPLEX #90 tabs omeprazole 40 mg capsule,delayed See Rx Instructions .Route 11/25/21 release .COMPLEX #90 caps ondansetron 4 mg disintegrating 4 mg PO Q8HP PRN Nausea #20 tabs 12/01/21 tablet cariprazine 1.5 mg capsule See Rx Instructions .Route 01/29/22 (Vraylar) .COMPLEX #30 caps paroxetine HCl 20 mg tablet See Rx Instructions .Route 01/29/22
[2022-04-22 10:32] VITALS: BMI 45.7
[2022-04-22 10:32] LABS: Basophils # 0.1 K/mm3 (0-0.2); Basophils % 1.5 % (0.1-2.0); Eosinophils # 0.2 K/mm3 (0.0-0.4); Eosinophils % 1.9 % (0.1-12.0); Hematocrit 39.7 % (37.0-47.0); Hemoglobin 13.4 g/dL (12.2-16.2); Lymphocytes # 2.6 K/mm3 (0.7-4.5); Lymphocytes % 29.8 % (10-50); Mean Corpuscular HGB Conc 33.8 g/dL (31.8-35.4); Mean Corpuscular Hemoglobin 26.5 pg (27.0-31.2); Mean Corpuscular Volume 78.4 fl (81-99); Mean Platelet Volume 8.3 fl (7.4-10.4); Monocytes # 0.5 K/mm3 (0.1-1.0); Monocytes % 5.7 % (1.7-9.3); Neutrophils # 5.2 K/mm3 (1.8-7.8); Neutrophils % 61.1 % (37.0-80.0); Platelet Count 437 K/mm3 (142-424); Red Blood Count 5.06 M/mm3 (4.20-5.40); Red Cell Distribution Width 15.2 % (11.5-17.5); White Blood Count 8.6 K/mm3 (4.8-10.8)
[2022-04-22 10:39] LABS: Chloride 107 mmol/L (98-107); Potassium 3.6 mmoL/L (3.5-5.1); Sodium 138 mmol/L (136-145)
[2022-04-22 10:42] LABS: Alanine Aminotransferase 81 U/L (12-78); Alkaline Phosphatase 100 U/L (38-126); Anion Gap 10.6 mEq/L (5-15); Aspartate Amino Transferase 59 U/L (14-36); Bilirubin,Unconjugated 0.1 mg/dL (0.0-1.1); Blood Urea Nitrogen 7 mg/dl (7-17); Calcium 9.2 mg/dl (8.4-10.2); Carbon Dioxide 24 mmol/L (22.0-30.0); Creatinine Clearance Estimated 81 mL/min (50-200); Estimated Glomerular Filt Rate 84 ml/min (>60); GFR (African American) 102 ML/MIN (>60); Glucose 97 mg/dl (74-100); Lipase 39 U/L (23-300); Total Protein,Serum 7.5 g/dl (6.3-8.2)
[2022-04-22 10:43] LABS: Bilirubin,Indirect 0.1 mg/dL (0.0-0.9); Bilirubin,Total 0.1 mg/dl (0.2-1.3)
[2022-04-22 10:49] LABS: HCG Qualitative, Serum Negative (Negative)
[2022-04-22 11:00] LABS: Troponin I < 0.01 ng/ml (0.00-0.034)
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
[2022-04-22 11:58] VITALS: BP 0/0; PULSE 0; RESP 0; TEMP -17.7; TEMP 0; O2SAT 0
== END 2022-04-22 12:00 | disposition left against medical advice (07) ==
PROVIDERS: Emergency Provider Emergency Medicine; PCP Physician Assistant
DX: R06.02 Shortness of breath (principal); R11.2 Nausea with vomiting, unspecified; M79.10 Myalgia, unspecified site; R05.9 Cough, unspecified; K21.9 Gastro-esophageal reflux disease without esophagitis; E03.9 Hypothyroidism, unspecified; K58.9 Irritable bowel syndrome, unspecified; F17.210 Nicotine dependence, cigarettes, uncomplicated; F32.A Depression, unspecified; Z79.52 Long term (current) use of systemic steroids; Z79.3 Long term (current) use of hormonal contraceptives; Z79.899 Other long term (current) drug therapy
CPT/HCPCS: 71045; 80048; 80076; 83690; 84484; 84703; 85025; 93005; 96361; 96374; 99285; J2405

== ENCOUNTER 2022-04-29 05:40 | Emergency (ER) | payer MEDICAID, SELFPAY ==
[2022-04-29 05:41] VITALS: BP 140/57; PULSE 75; RESP 16; TEMP 36.5; O2SAT 98; BMI 45.7
[2022-04-29 05:47] VITALS: BMI 45.7
--- NOTE | 2022-04-29 05:48 | XR_ITS ---
PROCEDURE INFORMATION: Exam: XR Right Tibia and Fibula Exam date and time: 04/29/2022 5:53 AM Age: 31 years old Clinical indication: Pain; Lower leg; Right; Additional info: Fall TECHNIQUE: Imaging protocol: Radiologic exam of the Right tibia and fibula. Views: 2 views. COMPARISON: CR XR ANKLE RT MIN 3V 04/29/2022 5:51 AM FINDINGS: Bones/joints: Normal. Soft tissues: Normal. IMPRESSION: No acute findings.
--- NOTE | 2022-04-29 05:48 | XR_ITS ---
PROCEDURE INFORMATION: Exam: XR Right Ankle Exam date and time: 04/29/2022 5:51 AM Age: 31 years old Clinical indication: Pain; Ankle; Right; Additional info: Fall 04/28/22 TECHNIQUE: Imaging protocol: Radiologic exam of the Right ankle. Views: 3 or more views. COMPARISON: No relevant prior studies available. FINDINGS: Bones/joints: Normal. Soft tissues: Diffuse soft tissue swelling. IMPRESSION: Soft tissue edema without fracture.
--- NOTE | 2022-04-29 05:48 | XR_ITS ---
PROCEDURE INFORMATION: Exam: XR Right Foot Exam date and time: 04/29/2022 5:54 AM Age: 31 years old Clinical indication: Pain; Foot; Right; Additional info: Fall TECHNIQUE: Imaging protocol: Radiologic exam of the Right foot. Views: 3 or more views. COMPARISON: CR XR TIBIA FIBULA RT 2V 04/29/2022 5:53 AM FINDINGS: Bones/joints: Normal. Soft tissues: Normal. IMPRESSION: No acute findings.
--- NOTE | 2022-04-29 06:56 | PC.NURSE ---
Rechecked pt condition. No needs voiced. Pt updated on POC.
--- NOTE | 2022-04-29 07:27 | HMH.EDLOEX ---
Discharge Plan Disposition Patient Disposition: Home, Self-Care Prescriptions Prescriptions: No Action norethin-e.estradiol triphasic 0.5/0.75/1 mg- 35 mcg tablet 1 tab PO DAILY Qty: 28 12RF paroxetine HCl 20 mg tablet See Rx Instructions .ROUTE .COMPLEX Qty: 90 0RF Dose Instruction: TAKE 1 TABLET BY MOUTH EVERY MORNING Rx Instructions: TAKE 1 TABLET BY MOUTH EVERY MORNING quetiapine 25 mg tablet See Rx Instructions .Route .COMPLEX Qty: 90 0RF Rx Instructions: TAKE 1 TABLET BY MOUTH ONCE DAILY Caplyta 10.5 mg capsule 10.5 mg PO DAILY Qty: 30 2RF clonazepam [Klonopin] 0.5 mg tablet 0.5 mg PO BID Qty: 60 0RF spironolactone [Aldactone] 25 mg tablet 25 mg PO DAILY Qty: 30 2RF cholecalciferol (vitamin D3) 25 mcg (1,000 unit) capsule 1,000 unit PO ONCE Qty: 90 0RF Rx Instructions: administer with meals ergocalciferol (vitamin D2) 1,250 mcg (50,000 unit) capsule 1,250 mcg PO WEEKLY Qty: 14 0RF omeprazole 40 mg capsule,delayed release(DR/EC) See Rx Instructions .ROUTE .COMPLEX Qty: 90 2RF Dose Instruction: TAKE 1 CAPSULE BY MOUTH ONCE DAILY FOR GERD Rx Instructions: TAKE 1 CAPSULE BY MOUTH ONCE DAILY FOR GERD levothyroxine 50 mcg tablet See Rx Instructions .ROUTE .COMPLEX Qty: 90 2RF Dose Instruction: TAKE ONE TABLET BY MOUTH EVERY DAY Rx Instructions: TAKE ONE TABLET BY MOUTH EVERY DAY Referrals Follow up/Referrals: Ricky Gutierrez JR, MD [Physician] - See instructions Nhung Giles PA [Primary Care Provider] - See instructions Lavinia Hardy DPM [Staff Physician] - See instructions Clinical Impressions Clinical Impression: Ankle sprain and strain Stand Alone Forms Stand Alone Forms: Work/School Release Instructions Patient Instructions: Sprain Discharge ED Provider: Soy Craft Lower Extremity Injury HPI General Chief Complaint: Extremity Injury, Lower Stated Complaint: 04/28/22 2100 fell right ankle pain Time Seen by Provider: 04/29/22 07:27 Mode of Arrival: Wheelchair Source of Information: Patient and Medical Record Limitations: No Limitations Description of Symptoms (Recalled from ER Triage Doc. by RN): pt fell down basement steps landing on rt ankle. pt c/o rt ankle History of Present Illness HPI Narrative: acute fall walking down steps and injured rt ankle MD complaint: ankle injury Onset (ago): hour(s) Injury: Right: ankle and foot Type of Injury: unknown Place: home Severity: moderate Associated symptoms: snap/pop sensation and unable to bear weight Other symptoms: none Related Data Previous Rx's Medication Instructions Recorded norethindrone-e.estradiol 1 tab PO DAILY #28 tabs 10/16/21 triphasic 0.5 mg/0.75 mg/1 mg-35 mcg tablet cholecalciferol (vitamin D3) 25 1,000 unit PO ONCE Supplement #90 10/17/21 mcg (1,000 unit) capsule caps ergocalciferol (vitamin D2) 1,250 1,250 mcg PO WEEKLY Supplement #14 10/17/21 mcg (50,000 unit) capsule caps levothyroxine 50 mcg tablet See Rx Instructions .Route 11/25/21 .COMPLEX #90 tabs omeprazole 40 mg capsule,delayed See Rx Instructions .Route 11/25/21 release .COMPLEX #90 caps clonazepam 0.5 mg tablet (Klonopin) 0.5 mg PO BID #60 tabs 04/24/22 lumateperone 10.5 mg capsule 10.5 mg PO DAILY #30 caps 04/24/22 (Caplyta) paroxetine HCl 20 mg tablet See Rx Instructions .Route 04/24/22 .COMPLEX #90 tabs quetiapine 25 mg tablet See Rx Instructions .Route 04/24/22 .COMPLEX Depression #90 tabs spironolactone 25 mg tablet 25 mg PO DAILY #30 tabs 04/24/22 (Aldactone) Allergies Allergy/AdvReac Type Severity Reaction Status Date / Time No Known Allergies Allergy Verified 04/24/22 15:24 [facility] Disclaimer: The information contained in this section may have been updated after the patient was seen, as this information can be updated by other users. Medical History Shona
[2022-04-29 07:40] VITALS: BP 145/85; PULSE 72; RESP 18; TEMP 36.8; O2SAT 100
== END 2022-04-29 07:40 | disposition home or self-care (01) ==
PROVIDERS: Emergency Provider Emergency Medicine; PCP Physician Assistant
DX: S93.401A Sprain of unspecified ligament of right ankle, initial encounter (principal); K21.9 Gastro-esophageal reflux disease without esophagitis; E03.9 Hypothyroidism, unspecified; K58.9 Irritable bowel syndrome, unspecified; F17.210 Nicotine dependence, cigarettes, uncomplicated; F32.A Depression, unspecified; W10.9XXA Fall (on) (from) unspecified stairs and steps, initial encounter
CPT/HCPCS: 73590; 73610; 73630; 99284

== ENCOUNTER 2022-08-15 23:18 | Emergency (ER) | payer MEDICAID, SELFPAY ==
[2022-08-15 23:19] VITALS: BP 132/82; PULSE 85; RESP 20; TEMP 37; O2SAT 99; BMI 45.7
--- NOTE | 2022-08-15 23:31 | PC.NURSE ---
Dr. Casiano at
--- NOTE | 2022-08-15 23:32 | HMH.EDEAR ---
Discharge Plan Disposition Patient Disposition: Home, Self-Care Prescriptions Prescriptions: New amoxicillin 500 mg tablet 500 mg PO Q6H Qty: 40 0RF No Action norethin-e.estradiol triphasic 0.5/0.75/1 mg- 35 mcg tablet 1 tab PO DAILY Qty: 28 12RF paroxetine HCl 20 mg tablet See Rx Instructions .ROUTE .COMPLEX Qty: 90 0RF Dose Instruction: TAKE 1 TABLET BY MOUTH EVERY MORNING Rx Instructions: TAKE 1 TABLET BY MOUTH EVERY MORNING Caplyta 10.5 mg capsule 10.5 mg PO DAILY Qty: 30 2RF spironolactone [Aldactone] 25 mg tablet 25 mg PO DAILY Qty: 30 2RF cholecalciferol (vitamin D3) 25 mcg (1,000 unit) capsule 1,000 unit PO ONCE Qty: 90 0RF Rx Instructions: administer with meals ergocalciferol (vitamin D2) 1,250 mcg (50,000 unit) capsule 1,250 mcg PO WEEKLY Qty: 14 0RF omeprazole 40 mg capsule,delayed release(DR/EC) See Rx Instructions .ROUTE .COMPLEX Qty: 90 2RF Dose Instruction: TAKE 1 CAPSULE BY MOUTH ONCE DAILY FOR GERD Rx Instructions: TAKE 1 CAPSULE BY MOUTH ONCE DAILY FOR GERD levothyroxine 50 mcg tablet See Rx Instructions .ROUTE .COMPLEX Qty: 90 2RF Dose Instruction: TAKE ONE TABLET BY MOUTH EVERY DAY Rx Instructions: TAKE ONE TABLET BY MOUTH EVERY DAY lithium carbonate 150 mg capsule 150 mg PO BID 90 Days Qty: 180 0RF clonazepam [Klonopin] 0.5 mg tablet 0.5 mg PO BID Qty: 60 0RF quetiapine 25 mg tablet See Rx Instructions .ROUTE .COMPLEX Qty: 90 0RF Dose Instruction: TAKE 1 TABLET BY MOUTH ONCE DAILY Rx Instructions: TAKE 1 TABLET BY MOUTH ONCE DAILY Referrals Follow up/Referrals: Nhung Giles PA [Primary Care Provider] - See instructions Activity Restrictions/Add. Instructions Additional Instructions/Restrictions: Please take vhmy-bie-jtslhod Tylenol and/or Motrin for your ear pain. Take all medications as prescribed. Return to the emergency department immediately if you feel worse in any way. Your work-up today showed that you have an ear infection. Clinical Impressions Clinical Impression: Otitis media Instructions Patient Instructions: DI for Middle Ear Infection-Adult Discharge ED Provider: Horacio Casiano Ear HPI General Stated complaint: Left ear pain; can't hear out of it Time Seen by Provider: 08/15/22 23:32 Mode of Arrival: Family Vehicle Source of Information: Patient History of Present Illness HPI Narrative: The patient presents to the emergency department complaining of a 2-day history of left-sided ear pain that is worsening. She denies any other symptoms. MD Complaint: ear pain Location: left ear Duration: constant Severity: severe Related Data Previous Rx's Medication Instructions Recorded norethindrone-e.estradiol 1 tab PO DAILY #28 tabs 10/16/21 triphasic 0.5 mg/0.75 mg/1 mg-35 mcg tablet cholecalciferol (vitamin D3) 25 1,000 unit PO ONCE Supplement #90 10/17/21 mcg (1,000 unit) capsule caps ergocalciferol (vitamin D2) 1,250 1,250 mcg PO WEEKLY Supplement #14 10/17/21 mcg (50,000 unit) capsule caps levothyroxine 50 mcg tablet See Rx Instructions .Route 11/25/21 .COMPLEX #90 tabs omeprazole 40 mg capsule,delayed See Rx Instructions .Route 11/25/21 release .COMPLEX #90 caps lumateperone 10.5 mg capsule 10.5 mg PO DAILY #30 caps 04/24/22 (Caplyta) paroxetine HCl 20 mg tablet See Rx Instructions .Route 04/24/22 .COMPLEX #90 tabs spironolactone 25 mg tablet 25 mg PO DAILY #30 tabs 04/24/22 (Aldactone) lithium carbonate 150 mg capsule 150 mg PO BID 90 days #180 caps 05/06/22 clonazepam 0.5 mg tablet (Klonopin) 0.5 mg PO BID #60 tabs 06/02/22 quetiapine 25 mg tablet See Rx Instructions .Route 07/14/22 .COMPLEX #90 tabs amoxicillin 500 mg tablet 500 mg PO Q6H #40 tabs 08/15/22 Allergies Allergy/AdvReac Type Severity Reaction Status Date / Time No Known Allergies Allergy Verified 04/24/22 15:24 [facility] Disclaimer:
[2022-08-15 23:46] VITALS: BP 130/80; PULSE 78; RESP 20; TEMP 37; O2SAT 98
== END 2022-08-15 23:48 | disposition home or self-care (01) ==
PROVIDERS: Emergency Provider Emergency Medicine; PCP Physician Assistant
DX: H66.90 Otitis media, unspecified, unspecified ear (principal); F17.210 Nicotine dependence, cigarettes, uncomplicated
CPT/HCPCS: 96372; 99283; 99284

== ENCOUNTER 2022-08-17 03:34 | Emergency (ER) | payer MEDICAID, SELFPAY ==
[2022-08-17 03:34] VITALS: BP 143/62; PULSE 77; RESP 22; TEMP 36.6; O2SAT 97; BMI 45.7
--- NOTE | 2022-08-17 03:45 | HMH.EDEAR ---
Discharge Plan Disposition Patient Disposition: Home, Self-Care Prescriptions Prescriptions: New ketorolac 10 mg Tablet 10 mg PO Q6H PRN (Reason: pain.) Qty: 8 0RF No Action norethin-e.estradiol triphasic 0.5/0.75/1 mg- 35 mcg tablet 1 tab PO DAILY Qty: 28 12RF paroxetine HCl 20 mg tablet See Rx Instructions .ROUTE .COMPLEX Qty: 90 0RF Dose Instruction: TAKE 1 TABLET BY MOUTH EVERY MORNING Rx Instructions: TAKE 1 TABLET BY MOUTH EVERY MORNING Caplyta 10.5 mg capsule 10.5 mg PO DAILY Qty: 30 2RF spironolactone [Aldactone] 25 mg tablet 25 mg PO DAILY Qty: 30 2RF cholecalciferol (vitamin D3) 25 mcg (1,000 unit) capsule 1,000 unit PO ONCE Qty: 90 0RF Rx Instructions: administer with meals ergocalciferol (vitamin D2) 1,250 mcg (50,000 unit) capsule 1,250 mcg PO WEEKLY Qty: 14 0RF omeprazole 40 mg capsule,delayed release(DR/EC) See Rx Instructions .ROUTE .COMPLEX Qty: 90 2RF Dose Instruction: TAKE 1 CAPSULE BY MOUTH ONCE DAILY FOR GERD Rx Instructions: TAKE 1 CAPSULE BY MOUTH ONCE DAILY FOR GERD levothyroxine 50 mcg tablet See Rx Instructions .ROUTE .COMPLEX Qty: 90 2RF Dose Instruction: TAKE ONE TABLET BY MOUTH EVERY DAY Rx Instructions: TAKE ONE TABLET BY MOUTH EVERY DAY lithium carbonate 150 mg capsule 150 mg PO BID 90 Days Qty: 180 0RF clonazepam [Klonopin] 0.5 mg tablet 0.5 mg PO BID Qty: 60 0RF quetiapine 25 mg tablet See Rx Instructions .ROUTE .COMPLEX Qty: 90 0RF Dose Instruction: TAKE 1 TABLET BY MOUTH ONCE DAILY Rx Instructions: TAKE 1 TABLET BY MOUTH ONCE DAILY amoxicillin 500 mg tablet 500 mg PO Q6H Qty: 40 0RF Referrals Follow up/Referrals: Nhung Giles PA [Primary Care Provider] - See instructions Activity Restrictions/Add. Instructions Additional Instructions/Restrictions: Continue taking your antibiotics as prescribed. You may continue to take Tylenol for pain. I have called in a prescription for Toradol to your pharmacy ([facility]). Return to the emergency department immediately if you feel worse in any way. Follow-up with your primary care doctor in about 2 days if you are not better. Clinical Impressions Clinical Impression: Otitis media Instructions Patient Instructions: Middle Ear Infection Discharge ED Provider: Horacio Casiano Ear HPI General Chief complaint: Ear Stated complaint: ear pain Time Seen by Provider: 08/17/22 03:51 Mode of Arrival: Family Vehicle Source of Information: Patient Limitations: No Limitations Description of Symptoms (Recalled from ER Triage Doc. by RN): Pt c/o L ear pain that began 3 days ago. She was in the ER about 24 hr ago and was dx with Ear infection and prescribed oral ABX. She reports she took them Thursday all day and now it feels even worse . She reports to have felt somthing pop inside and now the pain is stabbing . She denies any drainage from L ear. She contiues to reports muffled sounds from L ear. She reportedly took Tyelnol & Motrin a few hours [employer] and it gave no relief. Denies fever, chills, or N/V/D. History of Present Illness HPI Narrative: Patient presents to the emergency department complaining of worsening ear pain since she was last seen by me about 24 hours ago. She states that she started taking her antibiotic prescription this morning. She has been taking ibuprofen and Tylenol without relief. MD Complaint: ear pain Related Data Previous Rx's Medication Instructions Recorded norethindrone-e.estradiol 1 tab PO DAILY #28 tabs 10/16/21 triphasic 0.5 mg/0.75 mg/1 mg-35 mcg tablet cholecalciferol (vitamin D3) 25 1,000 unit PO ONCE Supplement #90 10/17/21 mcg (1,000 unit) capsule caps ergocalciferol (vitamin D2) 1,250 1,250 mcg PO WEEKLY Supplement #14 10/17/21 mcg (50,000 unit) capsule caps levothyroxine 50 mcg tablet See Rx Instructions .Route 11/25/21 .COMPLEX #90 tabs omeprazole 40
[2022-08-17 04:02] VITALS: BP 129/58; PULSE 76; RESP 19; TEMP 36.6; O2SAT 98
== END 2022-08-17 04:09 | disposition home or self-care (01) ==
PROVIDERS: Emergency Provider Emergency Medicine; PCP Physician Assistant
DX: H66.92 Otitis media, unspecified, left ear (principal); F17.210 Nicotine dependence, cigarettes, uncomplicated
CPT/HCPCS: 96372; 99283; 99284

== ENCOUNTER → 2023-02-13 23:34 | Outpatient (CLI) | payer MEDICAID, SELFPAY ==
[2023-02-13 19:08] LABS: Basophils % 0.4 % (0.1-2.0); Eosinophils % 0.1 % (0.1-12.0); Hematocrit 41.9 % (37.0-47.0); Hemoglobin 14.8 g/dL (12.2-16.2); Lymphocytes # 1.6 K/mm3 (0.7-4.5); Lymphocytes % 21.5 % (10-50); Mean Corpuscular HGB Conc 35.3 g/dL (31.8-35.4); Mean Corpuscular Hemoglobin 29.3 pg (27.0-31.2); Mean Corpuscular Volume 82.8 fl (81-99); Mean Platelet Volume 9.1 fl (7.4-10.4); Monocytes # 0.5 K/mm3 (0.1-1.0); Monocytes % 6.7 % (1.7-9.3); Neutrophils # 5.4 K/mm3 (1.8-7.8); Neutrophils % 71.3 % (37.0-80.0); Platelet Count 261 K/mm3 (142-424); Red Blood Count 5.05 M/mm3 (4.20-5.40); Red Cell Distribution Width 14.5 % (11.5-17.5); White Blood Count 7.6 K/mm3 (4.8-10.8)
[2023-02-13 19:33] LABS: Alanine Aminotransferase 79 U/L (12-78); Alkaline Phosphatase 114 U/L (38-126); Anion Gap 15.5 mEq/L (5-15); Aspartate Amino Transferase 80 U/L (14-36); Bilirubin,Total 0.5 mg/dl (0.2-1.3); Blood Urea Nitrogen 6 mg/dl (7-17); Calcium 8.7 mg/dl (8.4-10.2); Carbon Dioxide 23 mmol/L (22.0-30.0); Chloride 99 mmol/L (98-107); Chol/HDL Ratio 4.8 (1-3.5); Cholesterol 186 mg/dl (140-200); Estimated Glomerular Filt Rate 117 ml/min (>60); GFR (African American) 141 ML/MIN (>60); Glucose 77 mg/dl (74-100); HDL Cholesterol 39 mg/dl (40-60); Potassium 3.5 mmoL/L (3.5-5.1); Sodium 134 mmol/L (136-145); Triglycerides 135 mg/dl (30-150); VLDL Cholesterol 27 mg/dL (0-40)
[2023-02-13 19:45] LABS: Direct LDL Cholesterol 115.36 mg/dL (100-129)
[2023-02-13 19:46] LABS: Albumin Level 4.1 g/dl (3.5-5.0); Albumin/Globulin Ratio 1.2 (1.1-1.8); Globulin 3.3 g/dL (1.3-3.2); Total Protein,Serum 7.4 g/dl (6.3-8.2)
[2023-02-13 19:51] LABS: 25-OH Vitamin D, Total 35.6 ng/mL (30-100)
[2023-02-13 20:04] LABS: Thyroid Stimulating Hormone 1.29 uIU/mL (0.465-4.68)
== END ==
PROVIDERS: PCP Physician Assistant; Visit Provider Student in an Organized Health Care Education/Training Program
DX: J06.9 Acute upper respiratory infection, unspecified (principal); J39.9 Disease of upper respiratory tract, unspecified; J02.9 Acute pharyngitis, unspecified; R82.2 Biliuria; R53.83 Other fatigue; E03.9 Hypothyroidism, unspecified; E66.9 Obesity, unspecified; Z68.41 Body mass index [BMI] 40.0-44.9, adult
CPT/HCPCS: 80053; 80061; 82306; 84443; 85025; 87070; 87635

== ENCOUNTER → 2023-02-27 09:00 | Outpatient (CLI) | payer MEDICAID, SELFPAY ==
--- NOTE | 2023-02-27 09:04 | US_ITS ---
FINAL REPORT CLINICAL HISTORY: elevated liver enzymes COMPARISON: None FINDINGS: Sonographic images of the right upper quadrant were obtained. The pancreas is partially obscured. The liver is fatty infiltrated. The gallbladder is absent. There is no evidence of biliary ductal dilatation.The common duct measures 5 mm. Limited images of the right kidney are unremarkable. IMPRESSION: Fatty liver. Reviewed, Interpreted and Dictated by Fabian Parra III, MD Transcribed by Kaye Donald Authenticated and [facility]
== END ==
PROVIDERS: PCP Physician Assistant; Visit Provider Student in an Organized Health Care Education/Training Program
DX: R74.8 Abnormal levels of other serum enzymes (principal)
CPT/HCPCS: 76705

== ENCOUNTER → 2023-02-27 23:29 | Outpatient (CLI) | payer MEDICAID, SELFPAY ==
[2023-02-27 18:37] LABS: Chloride 107 mmol/L (98-107); Potassium 4.1 mmoL/L (3.5-5.1); Sodium 138 mmol/L (136-145)
[2023-02-27 18:39] LABS: Basophils # 0.1 K/mm3 (0-0.2); Basophils % 0.6 % (0.1-2.0); Blood Urea Nitrogen 4 mg/dl (7-17); Eosinophils # 0.1 K/mm3 (0.0-0.4); Eosinophils % 1.4 % (0.1-12.0); Estimated Glomerular Filt Rate 117 ml/min (>60); GFR (African American) 141 ML/MIN (>60); Hematocrit 40.4 % (37.0-47.0); Hemoglobin 14.1 g/dL (12.2-16.2); Lymphocytes # 2.9 K/mm3 (0.7-4.5); Lymphocytes % 28.4 % (10-50); Mean Corpuscular HGB Conc 34.9 g/dL (31.8-35.4); Mean Corpuscular Hemoglobin 29.7 pg (27.0-31.2); Mean Corpuscular Volume 85.2 fl (81-99); Mean Platelet Volume 8.9 fl (7.4-10.4); Monocytes # 0.4 K/mm3 (0.1-1.0); Monocytes % 4.3 % (1.7-9.3); Neutrophils # 6.6 K/mm3 (1.8-7.8); Neutrophils % 65.3 % (37.0-80.0); Platelet Count 423 K/mm3 (142-424); Red Blood Count 4.75 M/mm3 (4.20-5.40); Red Cell Distribution Width 14.6 % (11.5-17.5); White Blood Count 10.1 K/mm3 (4.8-10.8)
[2023-02-27 18:40] LABS: Alanine Aminotransferase 56 U/L (12-78); Albumin Level 3.8 g/dl (3.5-5.0); Albumin/Globulin Ratio 1.2 (1.1-1.8); Alkaline Phosphatase 96 U/L (38-126); Anion Gap 9.1 mEq/L (5-15); Aspartate Amino Transferase 38 U/L (14-36); Bilirubin,Total 0.2 mg/dl (0.2-1.3); Calcium 8.8 mg/dl (8.4-10.2); Carbon Dioxide 26 mmol/L (22.0-30.0); Globulin 3.2 g/dL (1.3-3.2); Glucose 94 mg/dl (74-100)
[2023-03-01 08:24] LABS: HIV Screen 4th Generation wRfx Non Reactive (Non Reactive)
[2023-03-05 13:29] LABS: Hep A Ab, Total Negative; Hepatitis B Surface Antigen Negative
[2023-03-05 13:30] LABS: Hep B Core Ab, Total Negative; Hep B Surface Ab, Qual Non Reactive; Hepatitis C Antibody Non Reactive
== END ==
PROVIDERS: PCP Physician Assistant; Visit Provider Student in an Organized Health Care Education/Training Program
DX: Z20.5 Contact with and (suspected) exposure to viral hepatitis (principal)
CPT/HCPCS: 80053; 85025; 86703; 86704; 86706; 86708; 87340; 87380; 87522; 87902; G0432

== ENCOUNTER → 2023-03-20 15:08 | Outpatient (CLI) | payer MEDICAID, SELFPAY ==
--- NOTE | 2023-03-20 15:11 | US_ITS ---
FINAL REPORT TECHNIQUE: Limited sonographic imaging of the neck soft tissues was obtained. CLINICAL HISTORY: h/o thyroid nodule FINDINGS: Her multiple enlarged lymph nodes in the left neck measuring up to 1.9 cm. IMPRESSION: Multiple enlarged lymph nodes in the left neck measuring up to 1.9 cm. Reviewed, Interpreted and Dictated by Saurabh Dias MD Transcribed by Lynn Urrutia Authenticated and [facility]
--- NOTE | 2023-03-20 15:17 | US_ITS ---
FINAL REPORT TECHNIQUE: Ultrasound images of the thyroid were obtained. CLINICAL HISTORY: left cervical LAD FINDINGS: The right lobe of the thyroid measures 4.3 x 1.8 x 1.2 cm. It is normal in echogenicity. The left lobe of the thyroid measures 4.6 x 1.2 x 1.5 cm. It is normal in echogenicity. No mass or nodule identified IMPRESSION: Unremarkable exam. Reviewed, Interpreted and Dictated by Saurabh Dias MD Transcribed by Lynn Urrutia Authenticated and [facility]
== END ==
LOC: RAD 15:09
PROVIDERS: PCP Physician Assistant; Visit Provider Student in an Organized Health Care Education/Training Program
DX: R59.0 Localized enlarged lymph nodes (principal); Z86.39 Personal history of other endocrine, nutritional and metabolic disease
CPT/HCPCS: 76536

== ENCOUNTER → 2023-04-22 07:08 | Outpatient (CLI) | payer MEDICAID, SELFPAY ==
--- NOTE | 2023-04-22 07:08 | CT_ITS ---
FINAL REPORT TECHNIQUE: Thin section axial CT images with coronal and sagittal reformats were performed through the neck. This study was performed with techniques to keep radiation doses as low as reasonably achievable (ALARA). Individualized dose reduction techniques using automated exposure control or adjustment of mA and/or kV according to the patient''s size were employed. CLINICAL HISTORY: multiple lymph node enlargements on left neck COMPARISON: None FINDINGS: There is mild disc space narrowing at C5-6 and C6-7. There are small posterior osteophytes at C5-6 and C6-7. There are small scattered lymph nodes bilaterally. Nodes in the posterior cervical triangle measure up to 19 mm, mildly enlarged. These are more numerous than expected.. Salivary glands are normal. Larynx is unremarkable. Thyroid gland is unremarkable. IMPRESSION: Mild nonspecific cervical lymphadenopathy. No discrete mass or dominant lesion seen. Favor reactive but clinical follow-up recommended. If adenopathy persists or progresses, repeat CT with contrast is recommended Reviewed, Interpreted and Dictated by Saurabh Dias MD Transcribed by Kaye Donald Authenticated and [facility]
== END ==
PROVIDERS: PCP Physician Assistant; Visit Provider Nurse Practitioner
DX: R59.0 Localized enlarged lymph nodes (principal)
CPT/HCPCS: 70490

== ENCOUNTER 2023-06-04 13:58 | Emergency (ER) | payer MEDICAID, SELFPAY ==
[2023-06-04 14:40] VITALS: BP 142/80; PULSE 70; RESP 18; TEMP 36.9; O2SAT 96; BMI 45.9
--- NOTE | 2023-06-04 14:51 | EXP.UTC ---
Discharge Plan Disposition Patient Disposition: Home, Self-Care Condition: Good Prescriptions Prescriptions: New phenazopyridine [Pyridium] 200 mg tablet 200 mg PO Q8H 2 Days Qty: 6 0RF sulfamethoxazole-trimethoprim [Bactrim DS] 800-160 mg Tablet 1 tab PO BID Qty: 14 0RF ondansetron 4 mg Tablet,Disintegrating 4 mg PO Q8H PRN (Reason: Nausea) Qty: 12 0RF No Action omeprazole magnesium [Prilosec OTC] 20 mg tablet,delayed release (DR/EC) 20 mg PO DAILY fluticasone propionate [Allergy Relief (fluticasone)] 50 mcg/actuation spray,suspension 1 spray intranasal DAILY Qty: 16 2RF Rx Instructions: administer into each nostril vpkjafcjnumcbky-edqpcpzvx-QO [Bromfed DM] 2-30-10 mg/5 mL syrup 5 ml PO Q4-6H PRN (Reason: cold symptoms) Qty: 118 0RF dicyclomine 20 mg tablet 20 mg PO TID Qty: 60 0RF Dasetta 7/7/7 (28) 0.5/0.75/1 mg- 35 mcg tablet See Rx Instructions .ROUTE .COMPLEX Qty: 28 11RF Dose Instruction: TAKE 1 TABLET BY MOUTH ONCE DAILY Rx Instructions: TAKE 1 TABLET BY MOUTH ONCE DAILY levothyroxine 50 mcg tablet See Rx Instructions .ROUTE .COMPLEX Qty: 90 1RF Dose Instruction: TAKE ONE TABLET BY MOUTH EVERY DAY Rx Instructions: TAKE ONE TABLET BY MOUTH EVERY DAY paroxetine HCl 20 mg tablet See Rx Instructions .ROUTE .COMPLEX Qty: 90 3RF Dose Instruction: TAKE 1 TABLET BY MOUTH EVERY MORNING Rx Instructions: TAKE 1 TABLET BY MOUTH EVERY MORNING quetiapine 25 mg tablet See Rx Instructions .ROUTE .COMPLEX Qty: 90 0RF Dose Instruction: TAKE 1 TABLET BY MOUTH ONCE DAILY Rx Instructions: TAKE 1 TABLET BY MOUTH ONCE DAILY Referrals Follow up/Referrals: Nhung Giles PA [Primary Care Provider] - See instructions Activity Restrictions/Add. Instructions Additional Instructions/Restrictions: Drink plenty of fluids. Take tylenol or ibuprofen for pain or fever. Take the medications as directed. Follow up with your regular doctor. GO TO THE ER FOR ANY WORSENING SYMPTOMS The pyridium will make your urine turn orange, this is an expected side effect. It will stain your clothes if it comes into contact with them. We will culture the urine. That will tell what bacteria is causing your infection and which antibiotics will treat it best. Sometimes the first antibiotic we prescribe turns out to not work against different bacteria. So, make sure you follow up within 3 days if you are not getting better. Clinical Impressions Clinical Impression: UTI (urinary tract infection) Stand Alone Forms Stand Alone Forms: Work/School Release Instructions Patient Instructions: DI for Urinary Tract Infection (UTI), Urine Culture, Phenazopyridine Discharge ED Provider: Jimmie Cast [facility] General Stated complaint: kidney infection pain Time Seen by Provider: 06/04/23 14:51 History of Present Illness Provider Complaint: She states that for the past 1 week she has had low back pain, dysuria, and urinary frequency. She has a history of getting UTI's. Related Data Home Medications Medication Instructions Recorded Confirmed omeprazole magnesium 20 mg 20 mg PO DAILY 02/13/23 04/29/23 tablet,delayed release (Prilosec OTC) Previous Rx's Medication Instructions Recorded norethindrone-e.estradiol See Rx Instructions .Route 10/08/22 triphasic 0.5 mg/0.75 mg/1 mg-35 .COMPLEX #28 tabs mcg tablet (Dasetta (28)) levothyroxine 50 mcg tablet See Rx Instructions .Route 12/15/22 .COMPLEX #90 tabs paroxetine HCl 20 mg tablet See Rx Instructions .Route 03/30/23 .COMPLEX #90 tabs lkqrlrtapcrltmd-fxnuthjhibffjup-GB 5 ml PO Q4-6H PRN cold symptoms 03/31/23 2 mg-30 mg-10 mg/5 mL oral syrup #118 mL (Bromfed DM) dicyclomine 20 mg tablet 20 mg PO TID abdominal pain #60 03/31/23 tabs fluticasone propionate 50 1 spray intranasal DAILY #16 grams 03/31/23 mcg/actuation nasal spray,suspension (Allergy Relief (fluticasone)) quetiapine 25 mg tablet See Rx Instructions .Route 05/08/23 .COMPLEX #90 tabs ondansetron 4 mg disintegrating 4 mg PO Q8H PRN Nausea #12 tabs 06/04/23 tablet phenazopyridine 200 mg tablet 200 mg PO Q8H 2 days #6 tabs 06/04/23 (Pyridium) sulfamethoxazole 800 1 tab PO BID #14 tabs 06/04/23 mg-trimethoprim 160 mg tablet (Bactrim DS) Allergies Allergy/AdvReac Type Severity Reaction Status Date / Time No Known Allergies Allergy Verified 04/29/23 15:22 [facility] Disclaimer: The information contained in this section may have been updated after the patient was seen, as this information can be updated by other users. Medical History Cough Depression GERD (gastroesophageal reflux disease) Hidradenitis suppurativa Hypothyroidism IBS (irritable bowel syndrome) Localized enlarged lymph nodes left side per patient Otitis media Sinusitis 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 Smoking Status: Current every day smoker tobacco type: cigarettes packs per day: 1 alcohol intake: never substance use type: denies use current occupational status: other Travel in the last 8 weeks: None ROS Obtained: Yes All systems reviewed & no additional complaints except as documented Constitutional Constitutional: Reports system reviewed and no additional complaints, except as documented, Denies chills and Denies fever(s) Eyes Eyes: Denies eye discharge ENT Ears, Nose, Mouth, and Throat: Denies dysphagia, Denies sore throat and Denies throat swelling Cardiovascular Cardiovascular: Denies chest pain and Denies dyspnea Respiratory Respiratory: Denies chest congestion, Denies cough and Denies dyspnea Gastrointestinal Gastrointestingal: Denies abdominal pain, constipation, diarrhea, dysphagia, nausea or vomiting Genitourinary Female Genitourinary: Reports as per HPI, Reports dysuria, Reports urinary frequency, Denies urinary incontinence, Reports urinary hesitancy and Reports urinary urgency Musculoskeletal Musculoskeletal: Denies arthralgias and Reports back pain Integumentary/Breasts Skin/Breast: Denies rash Neurologic Neurologic: Denies paresthesias Allergic/Immunologic Allergic/Immunologic: Denies throat swelling Physical Exam General General appearance: alert and in no apparent distress Head Head exam: atraumatic and normocephalic Eye Eye exam: Present normal appearance, PERRL and EOMI ENT ENT exam: Present normal exam, mucous membranes moist, TM's normal bilaterally and normal external ear exam Neck Neck exam: Present normal inspection, full ROM and trachea midline; Absent tenderness, meningismus or lymphadenopathy Chest Chest inspection: Present normal inspection and symmetric chest wall rise; Absent tenderness Respiratory Respiratory exam: Present normal lung sounds bilaterally; Absent respiratory distress, wheezes or stridor Cardiovascular Cardiovascular exam: Present regular rate, normal rhythm and normal heart sounds Abdominal Exam Abdominal exam: Present soft and normal bowel sounds; Absent distention, tenderness, guarding, rebound, rigidity, incision, psoas sign, obturator sign, heel tap sign, Flores's sign, Rovsing's sign or tenderness at McBurney's Point Extremities Exam Extremities exam: Present normal inspection, full ROM and normal capillary refill; Absent tenderness, edema, joint swelling, calf tenderness or cyanosis Back Exam Back exam: Present normal inspection and full ROM; Absent tenderness, CVA tenderness (R) or CVA tenderness (L) Neurological Exam Neurological exam: Present alert, oriented X3 and normal gait Psychiatric Psychiatric exam: Present normal affect and normal mood Skin Skin exam: Present warm, dry, intact and normal color Lymphatic Lymphatic Findings: no adenopathy Medical Decision Making Medical Records Medical records reviewed: No I reviewed the patient's medical records. [place] Inquiry Pt receiving controlled substance: No Lab Data Lab results reviewed: Yes I reviewed the patient's lab results.
[2023-06-04 15:09] LABS: Apearance,Urine Turbid (Clear); Bilirubin,Urine Negative (Negative); Blood, Urine 2+ (Negative); Color,Urine Amber (Yellow); Glucose,Urine (UA) Negative (Negative); Ketones,Urine Negative (Negative); Protein,Urine 1+ (Negative); UTC Leukocyte Esterase,Urine 2+ (Negative); UTC Nitrate,Urine Negative (Negative); Urobilinogen,Urine 1 EU/dl (0.2)
[2023-06-04 15:27] VITALS: BP 142/80; PULSE 70; RESP 18; TEMP 36.9; O2SAT 96
== END 2023-06-04 15:27 | disposition home or self-care (01) ==
PROVIDERS: Emergency Provider Nurse Practitioner Family; PCP Physician Assistant
DX: N39.0 Urinary tract infection, site not specified (principal); M54.59 Other low back pain; F17.210 Nicotine dependence, cigarettes, uncomplicated; E03.9 Hypothyroidism, unspecified; K21.9 Gastro-esophageal reflux disease without esophagitis
CPT/HCPCS: 81003; 87086; 99212; 99214; G0463

== ENCOUNTER 2023-06-21 17:27 | Emergency (ER) | payer MEDICAID, SELFPAY ==
[2023-06-21 17:29] VITALS: BP 180/67; PULSE 77; RESP 15; TEMP 36.9; O2SAT 96; BMI 42.0
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
[2023-06-21] MEDS: MUPIROCIN 2% OINTMENT 22GM TUBE TP (17:58)
[2023-06-21 18:12] VITALS: BP 175/87; PULSE 90; RESP 15; TEMP 36.7
== END 2023-06-21 18:12 | disposition home or self-care (01) ==
PROVIDERS: Emergency Provider Student in an Organized Health Care Education/Training Program; PCP Physician Assistant
DX: T20.55XA Corrosion of first degree of scalp [any part], initial encounter (principal); T20.511A Corrosion of first degree of right ear [any part, except ear drum], initial encounter; T20.512A Corrosion of first degree of left ear [any part, except ear drum], initial encounter; T20.57XA Corrosion of first degree of neck, initial encounter; L01.00 Impetigo, unspecified; T65.6X1A Toxic effect of paints and dyes, not elsewhere classified, accidental (unintentional), initial encounter; K21.9 Gastro-esophageal reflux disease without esophagitis; L73.2 Hidradenitis suppurativa; E03.9 Hypothyroidism, unspecified; F17.210 Nicotine dependence, cigarettes, uncomplicated; Y92.9 Unspecified place or not applicable
CPT/HCPCS: 99283

== ENCOUNTER 2023-06-28 11:10 | Emergency (ER) | payer MEDICAID, SELFPAY ==
[2023-06-28 11:15] VITALS: BP 128/71; PULSE 70; RESP 18; TEMP 36.7; O2SAT 97; BMI 45.6
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
[2023-06-28] MEDS: DEXAMETHASONE 4MG/ML 1ML VIAL 10 MG IM (11:29)
[2023-06-28 12:00] VITALS: BP 128/71; PULSE 70; RESP 18; TEMP 36.7; O2SAT 97
== END 2023-06-28 12:00 | disposition home or self-care (01) ==
PROVIDERS: Emergency Provider Nurse Practitioner Family; PCP Physician Assistant
DX: L23.4 Allergic contact dermatitis due to dyes (principal); L03.811 Cellulitis of head [any part, except face]; L03.211 Cellulitis of face; L03.313 Cellulitis of chest wall; L03.312 Cellulitis of back [any part except buttock and flank]; F17.210 Nicotine dependence, cigarettes, uncomplicated; K21.9 Gastro-esophageal reflux disease without esophagitis; E03.9 Hypothyroidism, unspecified
CPT/HCPCS: 96372; 99212; 99214; G0463

== ENCOUNTER 2023-08-18 03:32 | Emergency (ER) | payer MEDICAID, SELFPAY ==
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
[2023-08-18 03:39] VITALS: BP 159/93; PULSE 80; RESP 20; O2SAT 96; BMI 43.9
[2023-08-18] MEDS: ACETAMINOPHEN 500MG TAB 1000 MG PO (03:44)
[2023-08-18] MEDS: AMOXICILLIN/CLAVULANATE POTASSIUM 875/125MG TABLET 1 EACH PO (03:44)
[2023-08-18 03:49] VITALS: BP 159/93; PULSE 80; RESP 20; TEMP 36.6
== END 2023-08-18 03:48 | disposition home or self-care (01) ==
PROVIDERS: Emergency Provider Emergency Medicine; PCP Physician Assistant
DX: H66.92 Otitis media, unspecified, left ear (principal); F17.210 Nicotine dependence, cigarettes, uncomplicated; K21.9 Gastro-esophageal reflux disease without esophagitis; E03.9 Hypothyroidism, unspecified
CPT/HCPCS: 99283

== ENCOUNTER 2023-10-14 12:31 | Emergency (ER) | payer MEDICAID, SELFPAY ==
[2023-10-14 12:40] VITALS: BP 136/77; PULSE 68; RESP 20; TEMP 37.4; O2SAT 97; BMI 43.9
--- NOTE | 2023-10-14 12:50 | ED_ITS ---
Discharge Plan Disposition Patient Disposition: Home, Self-Care Condition: Good Prescriptions Prescriptions: New ondansetron 4 mg tablet,disintegrating 4 mg PO Q8H PRN (Reason: nausea and vomiting) Qty: 10 0RF dicyclomine 10 mg capsule 10 mg PO QID Qty: 20 0RF No Action omeprazole magnesium [Prilosec OTC] 20 mg tablet,delayed release (DR/EC) 20 mg PO DAILY spironolactone 25 mg tablet 25 mg PO DAILY Qty: 30 3RF paroxetine HCl 20 mg tablet See Rx Instructions .ROUTE .COMPLEX Qty: 90 3RF Dose Instruction: TAKE 1 TABLET BY MOUTH EVERY MORNING Rx Instructions: TAKE 1 TABLET BY MOUTH EVERY MORNING levothyroxine 50 mcg tablet See Rx Instructions .ROUTE .COMPLEX Qty: 90 0RF Dose Instruction: TAKE ONE TABLET BY MOUTH EVERY DAY Rx Instructions: TAKE ONE TABLET BY MOUTH EVERY DAY quetiapine 25 mg tablet See Rx Instructions .ROUTE .COMPLEX Qty: 90 0RF Dose Instruction: TAKE 1 TABLET BY MOUTH ONCE DAILY Rx Instructions: TAKE 1 TABLET BY MOUTH ONCE DAILY Dasetta (28) 0.5/0.75/1 mg- 35 mcg tablet See Rx Instructions .ROUTE .COMPLEX Qty: 28 10RF Dose Instruction: TAKE 1 TABLET BY MOUTH ONCE DAILY Rx Instructions: TAKE 1 TABLET BY MOUTH ONCE DAILY dicyclomine 10 mg Capsule 10 mg PO Q8HP PRN (Reason: STOMACH CRAMPS) Referrals Follow up/Referrals: Nhung Giles PA [Primary Care Provider] - See instructions Clinical Impressions Clinical Impression: Gastroenteritis Stand Alone Forms Stand Alone Forms: Work/School Release Instructions Patient Instructions: DI for Vomiting -- Adult Discharge ED Provider: Kayleigh Cooley [facility] General Stated complaint: vomiting, abd pain Time Seen by Provider: 10/14/23 12:50 History of Present Illness Provider Complaint: Pt reports that she woke up this morning with stomach cramping and has vomited a couple of times at home. She reports that she is on control that she takes faithfully. She denies any burning with urination. Related Data Home Medications Medication Instructions Recorded Confirmed omeprazole magnesium 20 mg 20 mg PO DAILY 02/13/23 10/14/23 tablet,delayed release (Prilosec OTC) dicyclomine 10 mg capsule 10 mg PO Q8HP PRN STOMACH CRAMPS 10/14/23 10/14/23 Previous Rx's Medication Instructions Recorded paroxetine HCl 20 mg tablet See Rx Instructions .Route 03/30/23 .COMPLEX #90 tabs levothyroxine 50 mcg tablet See Rx Instructions .Route 06/25/23 .COMPLEX #90 tabs spironolactone 25 mg tablet 25 mg PO DAILY #30 tabs 07/20/23 quetiapine 25 mg tablet See Rx Instructions .Route 08/13/23 .COMPLEX #90 tabs norethindrone-e.estradiol See Rx Instructions .Route 09/08/23 triphasic 0.5 mg/0.75 mg/1 mg-35 .COMPLEX #28 tabs mcg tablet (Dasetta (28)) dicyclomine 10 mg capsule 10 mg PO QID #20 caps 10/14/23 ondansetron 4 mg disintegrating 4 mg PO Q8H PRN nausea and 10/14/23 tablet vomiting #10 tabs Allergies Allergy/AdvReac Type Severity Reaction Status Date / Time No Known Allergies Allergy Verified 07/20/23 08:17 [facility] Disclaimer: The information contained in this section may have been updated after the patient was seen, as this information can be updated by other users. Medical History (Updated 10/14/23 @ 13:03 by Kayleigh Cooley APRN) Hidradenitis suppurativa Bipolar depression Self mutilating behavior Thyroid nodule Vitamin D deficiency Superficial chemical burn of left ear Lymphadenopathy, cervical Cellulitis Allergic reaction to hair dye Impetigo Chemical burn of neck Chemical burn of scalp Localized enlarged lymph nodes Otitis media Cough GERD (gastroesophageal reflux disease) Hypothyroidism IBS (irritable bowel syndrome) Sinusitis Depression 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 No significant past surgical history Family History Other No significant family history 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 Smoking Status: Heavy tobacco smoker tobacco type: cigarettes packs per day: 1 alcohol intake: never substance use type: denies use current occupational status: other Travel in the last 8 weeks: None ROS Obtained: Yes All systems reviewed & no additional complaints except as documented Constitutional Constitutional: Reports system reviewed and no additional complaints, except as documented Eyes Eyes: Reports system reviewed and no additional complaints, except as documented ENT Ears, Nose, Mouth, and Throat: Reports system reviewed and no additional complaints, except as documented Cardiovascular Cardiovascular: Reports system reviewed and no additional complaints, except as documented Respiratory Respiratory: Reports system reviewed and no additional complaints, except as documented Gastrointestinal Gastrointestingal: Reports system reviewed and no additional complaints, except as documented, cramping, nausea and vomiting Genitourinary Female Genitourinary: Reports system reviewed and no additional complaints, except as documented Musculoskeletal Musculoskeletal: Reports system reviewed and no additional complaints, except as documented Integumentary/Breasts Skin/Breast: Reports system reviewed and no additional complaints, except as documented Neurologic Neurologic: Reports system reviewed and no additional complaints, except as documented Endocrine Endocrine: Reports system reviewed and no additional complaints, except as documented Hematologic/Lymphatic Henatologic/Lymphatic: Reports system reviewed and no additional complaints, except as documented Allergic/Immunologic Allergic/Immunologic: Reports system reviewed and no additional complaints, except as documented Physical Exam General General appearance: alert Comment: ill appearing Head Head exam: atraumatic and normocephalic Eye Eye exam: Present normal appearance ENT ENT exam: Present normal exam and normal oropharynx Neck Neck exam: Present normal inspection Chest Chest inspection: Present normal inspection and symmetric chest wall rise Respiratory Respiratory exam: Present normal lung sounds bilaterally Cardiovascular Cardiovascular exam: Present regular rate and normal rhythm Abdominal Exam Abdominal exam: Present soft Abdominal tenderness: Present diffuse and mild Extremities Exam Extremities exam: Present normal inspection Back Exam Back exam: Present normal inspection Neurological Exam Neurological exam: Present alert and oriented X3 Psychiatric Psychiatric exam: Present normal affect and normal mood Skin Skin exam: Present warm, dry and intact Lymphatic Lymphatic Findings: no adenopathy Medical Decision Making Augustin Inquiry Pt receiving controlled substance: No Augustin was queried for this patient: No
[2023-10-14 13:03] VITALS: BP 136/77; PULSE 68; RESP 20; TEMP 37.4; O2SAT 97
== END 2023-10-14 13:10 | disposition home or self-care (01) ==
PROVIDERS: Emergency Provider Nurse Practitioner Family; PCP Physician Assistant
DX: K52.9 Noninfective gastroenteritis and colitis, unspecified (principal); R10.819 Abdominal tenderness, unspecified site; R11.2 Nausea with vomiting, unspecified; F17.210 Nicotine dependence, cigarettes, uncomplicated
CPT/HCPCS: 99212; 99214; G0463

== ENCOUNTER 2023-12-30 12:30 | Emergency (ER) | payer MEDICAID, SELFPAY ==
[2023-12-30 12:35] VITALS: BP 133/67; PULSE 63; RESP 19; TEMP 37.1; O2SAT 99; BMI 44.2
[2023-12-30 12:50] LABS: Apearance,Urine Clear (Clear); Color,Urine Yellow (Yellow)
[2023-12-30 12:51] LABS: Bilirubin,Urine Negative (Negative); Blood, Urine Negative (Negative); Glucose,Urine (UA) Negative (Negative); Ketones,Urine Negative (Negative); Protein,Urine Negative (Negative); UTC Leukocyte Esterase,Urine Negative (Negative); UTC Nitrate,Urine Negative (Negative); UTC Pregnancy Test, Urine Negative (Negative); Urobilinogen,Urine 0.2 EU/dl (0.2)
--- NOTE | 2023-12-30 12:56 | EXP.UTC ---
Discharge Plan Disposition Patient Disposition: Home, Self-Care Condition: Good Prescriptions Prescriptions: New nitrofurantoin monohyd/m-cryst [Macrobid] 100 mg Capsule 100 mg PO BID Qty: 10 0RF Rx Instructions: must administer with a meal/food No Action omeprazole magnesium [Prilosec OTC] 20 mg tablet,delayed release (DR/EC) 20 mg PO DAILY paroxetine HCl 20 mg tablet See Rx Instructions .ROUTE .COMPLEX Qty: 90 3RF Dose Instruction: TAKE 1 TABLET BY MOUTH EVERY MORNING Rx Instructions: TAKE 1 TABLET BY MOUTH EVERY MORNING Dasetta /11/07 (28) 0.5/0.75/1 mg- 35 mcg tablet See Rx Instructions .ROUTE .COMPLEX Qty: 28 10RF Dose Instruction: TAKE 1 TABLET BY MOUTH ONCE DAILY Rx Instructions: TAKE 1 TABLET BY MOUTH ONCE DAILY levothyroxine 50 mcg tablet See Rx Instructions .ROUTE .COMPLEX Qty: 90 0RF Dose Instruction: TAKE ONE TABLET BY MOUTH EVERY DAY Rx Instructions: TAKE ONE TABLET BY MOUTH EVERY DAY quetiapine 25 mg tablet See Rx Instructions .ROUTE .COMPLEX Qty: 90 0RF Dose Instruction: TAKE 1 TABLET BY MOUTH ONCE DAILY Rx Instructions: TAKE 1 TABLET BY MOUTH ONCE DAILY spironolactone 25 mg tablet 25 mg PO DAILY Patient Comments: TAKE 1 TABLET BY MOUTH ONCE DAILY Referrals Follow up/Referrals: Nhung Giles PA [Primary Care Provider] - See instructions Activity Restrictions/Add. Instructions Additional Instructions/Restrictions: Drink plenty of fluids. Take tylenol for pain or fever. Take the medications as directed. Follow up with your regular doctor. GO TO THE ER FOR ANY WORSENING SYMPTOMS We will culture the urine. That will tell what bacteria is causing your infection and which antibiotics will treat it best. Sometimes the first antibiotic we prescribe turns out to not work against different bacteria. So, make sure you follow up within 3 days if you are not getting better. Clinical Impressions Clinical Impression: Dysuria, Amenorrhea Instructions Patient Instructions: Urine Culture, DI for Amenorrhea Print Language Print Language: Armenian Discharge ED Provider: Jimmie Cast [facility] HPI General Stated complaint: pain when urinating, poss Mode of Arrival: Ambulatory Source of Information: Patient Limitations: No Limitations Time Seen by Provider: 12/30/23 12:56 Description of Symptoms (Recalled from Triage Doc. by RN): PATIENT C/O PRESSURE, BURNING, AND PAIN WITH URINATION X 4 DAYS HEENT Symptoms (Recalled from RN notes): No Resp Symptoms (Recalled from RN notes): No Skin Symptoms (Recalled from RN notes): No MS Symptoms (Recalled from RN notes): No Functional Status (Recalled from RN notes): WNL Related Data Home Medications ?Medication ?Instructions ?Recorded ?Confirmed omeprazole magnesium 20 mg 20 mg PO DAILY 02/13/23 12/30/23 tablet,delayed release (Prilosec OTC) spironolactone 25 mg tablet 25 mg PO DAILY 12/30/23 12/30/23 Previous Rx's ?Medication ?Instructions ?Recorded paroxetine HCl 20 mg tablet See Rx Instructions .Route 03/30/23 .COMPLEX #90 tabs norethindrone-e.estradiol See Rx Instructions .Route 09/08/23 triphasic 0.5 mg/0.75 mg/1 mg-35 .COMPLEX #28 tabs mcg tablet (Dasetta ()) levothyroxine 50 mcg tablet See Rx Instructions .Route 10/26/23 .COMPLEX #90 tabs quetiapine 25 mg tablet See Rx Instructions .Route 11/24/23 .COMPLEX #90 tabs nitrofurantoin 100 mg PO BID #10 caps 12/30/23 monohydrate/macrocrystals 100 mg capsule (Macrobid) Allergies Allergy/AdvReac Type Severity Reaction Status Date / Time No Known Allergies Allergy Verified 07/20/23 08:17 Worker's Comp Is this a Worker's Comp case?: No [facility] Disclaimer: The information contained in this section may have been updated after the patient was seen, as this information can be updated by other users. Medical History (Updated
[2023-12-30 14:06] VITALS: BP 133/67; PULSE 63; RESP 19; TEMP 37.1; O2SAT 99
[2023-12-30 14:28] LABS: Microscopic, Urine URINE MICROSCOPIC (MICROSCOPIC)
[2023-12-30 14:37] LABS: HCG Qualitative, Serum Negative (Negative)
[2023-12-30 14:46] LABS: Appearance,Urine CLEAR (Clear); Bilirubin,Urine Negative (Negative); Blood, Urine Negative (Negative); Color,Urine YELLOW (Yellow); Glucose,Urine (UA) Negative (Negative); Ketones,Urine Negative (Negative); Leukocyte Esterase,Urine Negative (Negative); Nitrate,Urine Negative (Negative); Protein,Urine Negative (Negative); Specific Gravity, Urine 1.015 (1.005-1.030); Urobilinogen,Urine 0.2 EU/dl (0.2)
[2023-12-30 15:15] LABS: Bacteria,Urine Trace /lpf
[2024-01-01 21:40] LABS: Neisseria gonorrhoeae, NAA Negative (Negative)
== END 2023-12-30 14:07 | disposition home or self-care (01) ==
PROVIDERS: Emergency Provider Nurse Practitioner Family; PCP Physician Assistant
DX: R30.0 Dysuria (principal); R30.9 Painful micturition, unspecified; B96.89 Other specified bacterial agents as the cause of diseases classified elsewhere; N91.2 Amenorrhea, unspecified
CPT/HCPCS: 81001; 81003; 81025; 84703; 87086; 87491; 87591; 99212; 99214; G0463

== ENCOUNTER 2024-02-29 15:13 | Emergency (ER) | payer MEDICAID, SELFPAY ==
[2024-02-29 15:30] VITALS: BP 153/81; PULSE 69; RESP 20; TEMP 36.8; O2SAT 96; BMI 45.3
--- NOTE | 2024-02-29 15:32 | ED_ITS ---
Discharge Plan Disposition Patient Disposition: Home, Self-Care Condition: Good Prescriptions Prescriptions: New azithromycin [Zithromax] 250 mg tablet 250 mg PO UD DOSE PK Qty: 6 0RF Rx Instructions: Take two (2) tablets today, then one (1) tablet days #2 thru #5 methylprednisolone 4 mg Tablets,Dose Pack 4 mg PO DIRECTED 6 Days Qty: 21 0RF Rx Instructions: Take 1 pack as directed for 6 days [id number] [Bromfed DM] 2-30-10 mg/5 mL Syrup 5 ml PO Q6H PRN (Reason: Cough) Qty: 240 0RF ondansetron 4 mg Tablet,Disintegrating 4 mg PO Q8H PRN (Reason: Nausea) Qty: 12 0RF No Action paroxetine HCl 20 mg tablet See Rx Instructions .ROUTE .COMPLEX Qty: 90 3RF Dose Instruction: TAKE 1 TABLET BY MOUTH EVERY MORNING Rx Instructions: TAKE 1 TABLET BY MOUTH EVERY MORNING Dasetta /7/7 (28) 0.5/0.75/1 mg- 35 mcg tablet See Rx Instructions .ROUTE .COMPLEX Qty: 28 10RF Dose Instruction: TAKE 1 TABLET BY MOUTH ONCE DAILY Rx Instructions: TAKE 1 TABLET BY MOUTH ONCE DAILY quetiapine 25 mg tablet See Rx Instructions .ROUTE .COMPLEX Qty: 90 0RF Dose Instruction: TAKE 1 TABLET BY MOUTH ONCE DAILY Rx Instructions: TAKE 1 TABLET BY MOUTH ONCE DAILY levothyroxine 50 mcg tablet See Rx Instructions .ROUTE .COMPLEX Qty: 90 0RF Dose Instruction: TAKE 1 TABLET BY MOUTH ONCE DAILY Rx Instructions: TAKE 1 TABLET BY MOUTH ONCE DAILY spironolactone 25 mg tablet 25 mg PO DAILY Patient Comments: TAKE 1 TABLET BY MOUTH ONCE DAILY Referrals Follow up/Referrals: Provider,Referral, MD [Primary Care Provider] - See instructions Activity Restrictions/Add. Instructions Additional Instructions/Restrictions: Drink plenty of fluids. Take tylenol or ibuprofen for pain or fever. Take the medications as directed. Follow up with your regular doctor. GO TO THE ER FOR ANY WORSENING SYMPTOMS Clinical Impressions Clinical Impression: Acute bronchitis, Pharyngitis Stand Alone Forms Stand Alone Forms: Work/School Release Instructions Patient Instructions: Acute Bronchitis, DI for Acute Bronchitis Print Language Print Language: Frisian Discharge ED Provider: Jimmie Cast [facility] HPI General Stated complaint: sore throat,cough,body aches,runny nose Time Seen by Provider: 02/29/24 15:32 Related Data Home Medications ?Medication ?Instructions ?Recorded ?Confirmed spironolactone 25 mg tablet 25 mg PO DAILY 12/30/23 02/29/24 Previous Rx's ?Medication ?Instructions ?Recorded paroxetine HCl 20 mg tablet See Rx Instructions .Route 03/30/23 .COMPLEX #90 tabs norethindrone-e.estradiol See Rx Instructions .Route 09/08/23 triphasic 0.5 mg/0.75 mg/1 mg-35 .COMPLEX #28 tabs mcg tablet (Dasetta (28)) quetiapine 25 mg tablet See Rx Instructions .Route 11/24/23 .COMPLEX #90 tabs levothyroxine 50 mcg tablet See Rx Instructions .Route 02/15/24 .COMPLEX #90 tabs azithromycin 250 mg tablet 250 mg PO UD DOSE PK #6 tabs 02/29/24 (Zithromax) zfchhqddelceury-nahmhbdhxkrnvok-MY 5 ml PO Q6H PRN Cough #240 mL 02/29/24 2 mg-30 mg-10 mg/5 mL oral syrup (Bromfed DM) methylprednisolone 4 mg tablets in 4 mg PO DIRECTED 6 days #21 tabs 02/29/24 a dose pack ondansetron 4 mg disintegrating 4 mg PO Q8H PRN Nausea #12 tabs 02/29/24 tablet Allergies Allergy/AdvReac Type Severity Reaction Status Date / Time No Known Allergies Allergy Verified 02/04/24 10:11 [facility] Disclaimer: The information contained in this section may have been updated after the patient was seen, as this information can be updated by other users. Medical History Hidradenitis suppurativa Bipolar depression Self mutilating behavior Thyroid nodule Vitamin D deficiency Superficial chemical burn of left ear Lymphadenopathy, cervical Cellulitis Allergic reaction to hair dye Impetigo Chemical burn of neck Chemical burn of scalp Localized enlarged lymph nodes Otitis media Cough GERD (gastroesophageal reflux disease) Hypothyroidism IBS (irritable bowel syndrome) Sinusitis Depression 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 No significant past surgical history Family History Other No significant family history 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 Smoking Status: Heavy tobacco smoker tobacco type: cigarettes packs per day: 1 alcohol intake: never substance use type: denies use current occupational status: other Travel in the last 8 weeks: None ROS Obtained: Yes All systems reviewed & no additional complaints except as documented Constitutional Constitutional: Reports chills and Reports fever(s) Eyes Eyes: Denies eye discharge ENT Ears, Nose, Mouth, and Throat: Reports as per HPI Cardiovascular Cardiovascular: Denies chest pain Respiratory Respiratory: Denies chest congestion and Reports cough Gastrointestinal Gastrointestingal: Reports nausea; Denies abdominal pain, constipation, cramping, diarrhea or vomiting Musculoskeletal Musculoskeletal: Denies arthralgias Integumentary/Breasts Skin/Breast: Denies rash Neurologic Neurologic: Denies paresthesias Physical Exam General General appearance: alert and in no apparent distress Head Head exam: atraumatic, normocephalic and normal inspection Eye Eye exam: Present normal appearance, PERRL and EOMI ENT ENT exam: Present mucous membranes moist and normal external ear exam Expanded ENT Exam TM/Canal exam: Bilateral TM: erythema and bulging Nose exam: Absent sinus tenderness Mouth exam: Present normal external inspection; Absent drooling Teeth exam: Present normal inspection Throat exam: Present tonsillar erythema, tonsillomegaly and tonsillar exudate Neck Neck exam: Present normal inspection, full ROM and trachea midline; Absent tenderness, meningismus or lymphadenopathy Chest Chest inspection: Present normal inspection and symmetric chest wall rise; Absent tenderness Respiratory Respiratory exam: Present normal lung sounds bilaterally; Absent respiratory distress, wheezes, stridor or accessory muscle use Cardiovascular Cardiovascular exam: Present regular rate and normal rhythm; Absent systolic murmur or diastolic murmur Abdominal Exam Abdominal exam: Present soft and normal bowel sounds; Absent distention, tenderness, guarding, rebound or rigidity Extremities Exam Extremities exam: Present normal inspection and normal capillary refill; Absent calf tenderness Back Exam Back exam: Present normal inspection and full ROM; Absent tenderness, CVA tenderness (R) or CVA tenderness (L) Neurological Exam Neurological exam: Present alert, oriented X3 and CN II-XII intact Psychiatric Psychiatric exam: Present normal affect and normal mood Skin Skin exam: Present warm, dry, intact and normal color Medical Decision Making Medical Records Medical records reviewed: No I reviewed the patient's medical records. Screening: Per USPSTF and CDC recommendations, given the prevalence of disease in our region, it is our hospital?s policy to screen for HIV and viral Hepatitis for all patients aged 18 and over and those with ongoing risk factors. Augustin Inquiry Pt receiving controlled substance: No Lab Data Lab results reviewed: Yes I reviewed the patient's lab results.
[2024-02-29 15:40] LABS: UTC Strep Screen (Rapid) Negative (Negative)
[2024-02-29 15:55] VITALS: BP 153/81; PULSE 69; RESP 20; TEMP 36.8; O2SAT 96
== END 2024-02-29 15:57 | disposition home or self-care (01) ==
PROVIDERS: Emergency Provider Nurse Practitioner Family
DX: J20.9 Acute bronchitis, unspecified (principal); J02.9 Acute pharyngitis, unspecified
CPT/HCPCS: 87880; 99213; G0381

== ENCOUNTER 2024-03-07 16:20 | Outpatient (CLI) | payer MEDICAID, SELFPAY ==
[2024-03-07 18:08] LABS: Basophils # 0.1 K/mm3 (0-0.2); Basophils % 0.8 % (0.1-2.0); Eosinophils # 0.1 K/mm3 (0.0-0.4); Eosinophils % 0.5 % (0.1-12.0); Hematocrit 43.9 % (37.0-47.0); Hemoglobin 15.2 g/dL (12.2-16.2); Lymphocytes # 3.8 K/mm3 (0.7-4.5); Lymphocytes % 28.3 % (10-50); Mean Corpuscular HGB Conc 34.7 g/dL (31.8-35.4); Mean Corpuscular Hemoglobin 28.9 pg (27.0-31.2); Mean Corpuscular Volume 83.3 fl (81-99); Mean Platelet Volume 7.4 fl (7.4-10.4); Monocytes # 0.6 K/mm3 (0.1-1.0); Monocytes % 4.1 % (1.7-9.3); Neutrophils % 66.3 % (37.0-80.0); Platelet Count 473 K/mm3 (142-424); Red Blood Count 5.27 M/mm3 (4.20-5.40); Red Cell Distribution Width 14.3 % (11.5-17.5); White Blood Count 13.6 K/mm3 (4.8-10.8)
[2024-03-07 18:59] LABS: Chloride 105 mmol/L (98-107); Potassium 4.1 mmoL/L (3.5-5.1); Sodium 137 mmol/L (136-145)
[2024-03-07 19:02] LABS: Alanine Aminotransferase 25 U/L (12-78); Albumin/Globulin Ratio 1.5 (1.1-1.8); Alkaline Phosphatase 71 U/L (38-126); Anion Gap 14.1 mEq/L (5-15); Aspartate Amino Transferase 29 U/L (14-36); Bilirubin,Total 0.5 mg/dl (0.2-1.3); Blood Urea Nitrogen 10 mg/dl (7-17); Calcium 9.1 mg/dl (8.4-10.2); Carbon Dioxide 22 mmol/L (22.0-30.0); Cholesterol 210 mg/dl (140-200); Estimated Glomerular Filt Rate 83 ml/min (>60); GFR (African American) 101 ML/MIN (>60); Globulin 2.7 g/dL (1.3-3.2); Glucose 88 mg/dl (74-100); Total Protein,Serum 6.7 g/dl (6.3-8.2); Triglycerides 227 mg/dl (30-150); VLDL Cholesterol 45 mg/dL (0-40)
[2024-03-07 19:03] LABS: Chol/HDL Ratio 4.2 (1-3.5); HDL Cholesterol 50 mg/dl (40-60)
[2024-03-07 19:06] LABS: HIV (1&2) Antibody Rapid NONREACTIVE (NONREACTIVE)
[2024-03-07 19:13] LABS: Direct LDL Cholesterol 129.44 mg/dL (100-129)
[2024-03-07 19:15] LABS: 25-OH Vitamin D, Total 29.6 ng/mL (30-100)
[2024-03-07 20:02] LABS: Free Thyroxine Index 3.2 ug/dL (5.93-13.13); Triiodothryronine (T3) Uptake 21 % (23.5-40.5)
[2024-03-07 20:15] LABS: Thyroid Stimulating Hormone 2.89 uIU/mL (0.465-4.68)
[2024-03-08 11:31] LABS: Hemoglobin A1C 5.1 % (4.0-6.0)
[2024-03-09 09:39] LABS: HCV Ab Non Reactive (Non Reactive)
== END 2024-03-07 23:59 | disposition home or self-care (01) ==
LOC: LAB.DROPOF 03-08 12:20
PROVIDERS: PCP Family Medicine; Visit Provider Family Medicine
DX: J02.9 Acute pharyngitis, unspecified (principal); E04.1 Nontoxic single thyroid nodule; E03.9 Hypothyroidism, unspecified; Z00.00 Encounter for general adult medical examination without abnormal findings
CPT/HCPCS: 80050; 80053; 80061; 82306; 83036; 84436; 84443; 84479; 85025; 86803; 87389

== ENCOUNTER 2024-09-25 12:59 | Outpatient (CLI) | payer MEDICAID, SELFPAY | END 2024-09-25 23:59 | disposition home or self-care (01) | LOC: LAB.DROPOF 09-27 10:24 | PROVIDERS: PCP Family Medicine; Visit Provider Nurse Practitioner Family | DX: R35.0 Frequency of micturition (principal) | CPT/HCPCS: 87086 ==

== ENCOUNTER 2024-10-08 08:53 | Outpatient (CLI) | payer MEDICAID, SELFPAY ==
[2024-10-09 00:53] LABS: Chlamydia trachomatis Negative (Negative); Neisseria gonorrhoeae Negative (Negative); Trichomonas vaginalis Negative (Negative)
--- OUTSIDE RECORDS SUMMARY | 2024-10-10 08:59 | XMS_ITS | Clinical Summary ---
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 Phone Unavailable Primary Care Provider Unavailabl e Immunizations Immunization Administration Dates Next Due Tdap 11/27/2016 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 Tobacco Use Types Packs/Day Years Used Date Smoking Tobacco: Never Assessed Alcohol Use Standard Drinks/Week Comments Yes 0 (1 standard drink = 0.6 oz pur e alcohol) Comments Unknown Sex and Gender Information Value Date Recorded Sex Assigned at Not on file Legal Sex Female 6:15 PM EDT Gender Identity Not on file Sexual Orientation Not on file Last Filed Vital Signs Vital Sign Reading Time Taken Comments Blood Pressure - - Pulse - - Temperature - - Respiratory Rate - - Oxygen Saturation - - Inhaled Oxygen Concentration - - Weight 110 kg (242 lb) 02/02/2017 2:22 PM EDT Height 157.5 cm (5' 2 ) 02/02/2017 2:22 PM EDT Body Mass Index 44.26 02/02/2017 2:22 PM EDT Plan of Treatment Not on file
== END 2024-10-08 23:59 | disposition home or self-care (01) ==
LOC: LAB.DROPOF 10-10 08:54
PROVIDERS: PCP Family Medicine; Visit Provider Nurse Practitioner Family
DX: R30.0 Dysuria (principal); Z20.2 Contact with and (suspected) exposure to infections with a predominantly sexual mode of transmission
CPT/HCPCS: 87086; 87491; 87591; 87661

== ENCOUNTER 2024-11-10 07:23 | Emergency (ER) | payer MEDICAID, SELFPAY ==
--- NOTE | 2024-11-10 07:25 | ECG_ITS ---
APPROVED REPORT Exam: Resting ECG HR:72 bpm ECG Measurements Heart Rate 72 AXES NC 155 P 12 QRSd 102 QRS 78 QT 394 T 58 QTc 418 Conclusion Sinus rhythm Normal Intervals No ADARSH No overt ischemia Electronically signed by : Joe Esteban, 11/10/2024 10:36:31
[2024-11-10 07:27] VITALS: BP 169/98; PULSE 71; RESP 22; TEMP 36.8; O2SAT 98; BMI 45.7
--- NOTE | 2024-11-10 07:33 | XR_ITS ---
FINAL REPORT CLINICAL HISTORY: Nonspecific Chest Pain COMPARISON: 04/24/2022 FINDINGS: The heart size is normal. The mediastinum is normal. There is no focal infiltrate or edema. There are no pleural effusions. There is no pneumothorax. There is no osseous abnormality. IMPRESSION: No acute cardiopulmonary process Reviewed, Interpreted and Dictated by Saurabh Dias MD Transcribed by Kaye Donald Authenticated and [facility]
--- NOTE | 2024-11-10 07:35 | [facility].EDCP ---
Discharge Plan Disposition Patient Disposition: Home, Self-Care Condition: Good Prescriptions Prescriptions: No Action metronidazole 500 mg tablet 500 mg PO BID 7 Days Qty: 14 0RF ibuprofen 800 mg tablet 800 mg PO Q8H PRN (Reason: pain) Qty: 30 0RF Dasetta (28) 0.5/0.75/1 mg- 35 mcg tablet See Rx Instructions .ROUTE .COMPLEX Qty: 28 10RF Dose Instruction: TAKE 1 TABLET BY MOUTH ONCE DAILY Rx Instructions: TAKE 1 TABLET BY MOUTH ONCE DAILY paroxetine HCl 20 mg tablet See Rx Instructions .ROUTE .COMPLEX Qty: 90 2RF Dose Instruction: TAKE 1 TABLET BY MOUTH EVERY MORNING Rx Instructions: TAKE 1 TABLET BY MOUTH EVERY MORNING levothyroxine 50 mcg tablet See Rx Instructions .ROUTE .COMPLEX Qty: 90 2RF Dose Instruction: TAKE 1 TABLET BY MOUTH ONCE DAILY Rx Instructions: TAKE 1 TABLET BY MOUTH ONCE DAILY omeprazole 20 mg capsule,delayed release(DR/EC) See Rx Instructions .ROUTE .COMPLEX Qty: 90 1RF Dose Instruction: TAKE 1 CAPSULE BY MOUTH ONCE DAILY Rx Instructions: TAKE 1 CAPSULE BY MOUTH ONCE DAILY quetiapine 25 mg tablet See Rx Instructions .ROUTE .COMPLEX Qty: 90 1RF Dose Instruction: TAKE 1 TABLET BY MOUTH ONCE DAILY Rx Instructions: TAKE 1 TABLET BY MOUTH ONCE DAILY Referrals Follow up/Referrals: Nhung Giles PA [Primary Care Provider, Medical] - See instructions Activity Restrictions/Add. Instructions Additional Instructions/Restrictions: Please call your primary care doctor to follow up with her about these symptoms, especially given the chronicity of this pain since you were a teenager. If you have any new or worsening symptoms please return to the ER for further evaluation. Clinical Impressions Clinical Impression: Chest pain Instructions Patient Instructions: DI for Atypical Chest Pain Print Language Print Language: Emirati Discharge ED Provider: Joe Esteban General Chief Complaint: Chest Pain Stated Complaint: chest pain Time Seen by Provider: 11/10/24 07:27 Mode of Arrival: Ambulatory Source of Information: Patient Description of Symptoms (Recalled from ER Triage Doc. by RN): Pt reports CP that comes and goes over the past 2 weeks. Pt also reports nausea. History of Present Illness HPI narrative: This is a 34-year-old female patient, with a past medical history of hypothyroidism, GERD, and severe anxiety, who is presenting to the emergency department today for evaluation of chest pain. The patient states this pain initially began 2 weeks ago and is situated in her epigastrium and radiates into the chest. She states that she noticed this morning that she was experiencing some numbness in the right shoulder that was not relieved by positioning and this caused her to experience severe anxiety and prompted her visit to the emergency department today. She is not experiencing shortness of breath, cough, production of phlegm, or fevers. She is not experiencing nausea or vomiting. Her pain is not exertional in nature. Her pain does not radiate from the chest into the jaw, back, arms, or neck. She has not had any lower extremity erythema or edema. No recent travel via plane or car greater than 6 hours. No history of cancer. No history of recent surgeries. No recent immobility. She is on control. She has not had any recent viral syndromes and her pain does not get worse with sitting up. Related Data Previous Rx's ?Medication ?Instructions ?Recorded norethindrone-e.estradiol See Rx Instructions .Route 09/08/23 triphasic 0.5 mg/0.75 mg/1 mg-35 .COMPLEX #28 tabs mcg tablet (Dasetta (28)) paroxetine HCl 20 mg tablet See Rx Instructions .Route 04/06/24 .COMPLEX #90 tabs levothyroxine 50 mcg tablet See Rx Instructions .Route 04/28/24 .COMPLEX #90 tabs omeprazole 20 mg capsule,delayed See Rx Instructions .Route 05/23/24 release .COMPLEX #90 caps quetiapine 25 mg tablet See Rx Instructions .Route 05/23/24 .COMPLEX #90 tabs ibuprofen 800 mg tablet 800 mg PO Q8H PRN pain #30 tabs 09/25/24 metronidazole 500 mg tablet 500 mg PO BID 7 days #14 tabs 10/08/24 Allergies Allergy/AdvReac Type Severity Reaction Status Date / Time No Known Allergies Allergy Verified 10/08/24 13:07 [facility] Disclaimer: The information contained in this section may have been updated after the patient was seen, as this information can be updated by other users. 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) Cellulitis Impetigo Yeast infection Superficial chemical burn of right ear Acute effusion of right ear Allergic reaction to hair dye Chemical burn of neck Chemical burn of scalp UTI (urinary tract infection) URI (upper respiratory infection) Acute left otitis media Gastroenteritis Dysuria Acute bronchitis Pharyngitis Hidradenitis suppurativa Bipolar depression Self mutilating behavior Thyroid nodule Vitamin D deficiency Superficial chemical burn of left ear Lymphadenopathy, cervical Localized enlarged lymph nodes Otitis media Cough GERD (gastroesophageal reflux disease) Hypothyroidism IBS (irritable bowel syndrome) Sinusitis Depression 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 , 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) No significant past surgical history Family History , 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) No 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 family history 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 , 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) Smoking Status: Current every day smoker tobacco type: cigarettes packs per day: 1 alcohol intake: never substance use type: denies use current occupational status: other Travel in the last 8 weeks?: None Have you lived/traveled outside [place] in past 30 days?: No Contact w/someone who lives/traveled outside US past 30 days?: No Exposure to someone with infectious disease in past 14 days?: No Do you have a fever (greater than 100.4 F or 38 C)?: No Have you tested positive for COVID-19?: No Exposed to someone with COVID-19 in past 14 days?: No Do you have a sore throat?: No Do you have a cough?: No Do you have any weakness?: No Do you have any diarrhea?: No Are you experiencing any unusual bleeding?: No Do you have any muscle aches/pain?: No Do you have any abdominal pain?: No Are you experiencing loss of taste or smell?: No Other Medical History Have you received the Flu Vaccine for this season: No Have you received the Pneumonia Vaccine: No ROS Obtained: Yes Systems reviewed as appropriate & no additional complaints except as documented Physical Exam General General appearance: alert and in no apparent distress Head Head exam: atraumatic and normocephalic Eye Eye exam: Present normal appearance and PERRL ENT ENT exam: Present normal oropharynx and mucous membranes moist Neck Neck exam: Present full ROM and trachea midline Chest Chest inspection: Present symmetric chest wall rise Respiratory Respiratory exam: Present normal lung sounds bilaterally Cardiovascular Cardiovascular exam: Present regular rate and normal rhythm Abdominal Exam Abdominal exam: Present soft; Absent tenderness Extremities Exam Extremities exam: Present normal inspection; Absent tenderness Back Exam Back exam: Absent CVA tenderness (R) or CVA tenderness (L) Neurological Exam Neurological exam: Present alert and oriented X3 HEART Score HEART Score HEART Score assessment performed?: Yes History (anamnesis): Slightly suspicious ECG: Normal Age: <45 years Risk factors: 1-2 risk factors Troponin: </= normal limit HEART Score: 1 Critical Care Critical Care Time Critical Care Time: No Medical Decision Making Augustin Inquiry Pt receiving controlled substance: No Vital Signs Vital Signs: 11/10/24 07:27 11/10/24 07:45 11/10/24 08:15 Temperature 98.3 F Temperature Source Oral Pulse Rate 65 59 L Pulse Rate [Left] 71 Respiratory Rate 22 15 14 Blood Pressure 142/75 H 136/72 Blood Pressure [Right Arm] 169/98 H Blood Pressure Mean [Right Arm] 121 Blood Pressure Source [Right Arm] Automatic Cuff Blood Pressure Position [Right Arm] Sitting 02 Sat by Pulse Oximetry 98 97 97 Oxygen Delivery Method Room Air Room Air 11/10/24 08:31 Temperature Temperature Source Pulse Rate 60 Pulse Rate [Left] Respiratory Rate 18 Blood Pressure 145/81 H Blood Pressure [Right Arm] Blood Pressure Mean [Right Arm] Blood Pressure Source [Right Arm] Blood Pressure Position [Right Arm] 02 Sat by Pulse Oximetry 96 Oxygen Delivery Method Room Air Lab Data Labs: Lab Results 11/10/24 07:25: WBC 10.9 H, RBC 5.26, Hgb 14.3, Hct 43.8, MCV 83.3, MCH 27.2, MCHC 32.6, RDW 14.0, Plt Count 453 H, MPV 9.9, Neut % (Auto) 50.9, Lymph % (Auto) 40.6, Gentry % (Auto) 6.5, Eos % (Auto) 1.2, Baso % (Auto) 0.6, Neut # (Auto) 5.5, Lymph # (Auto) 4.4, Gentry # (Auto) 0.7, Eos # (Auto) 0.1, Baso # (Auto) 0.1, Total Counted 100, Neutrophils % (Manual) 53, Lymphocytes % (Manual) 36, Monocytes % (Manual) 9, Eosinophils % (Manual) 1, Basophils % (Manual) 1.0, Platelet Estimate Slight increase, RBC Morphology Normal, Sodium 137, Potassium 4.1, Chloride 101, Carbon Dioxide 26, Anion Gap 14.1, BUN 8, Creatinine 0.80, Estimated Creat Clear 79, Estimated GFR 83, Est GFR ( Amer) 100, Glucose 101 H, Calcium 9.7, Total Bilirubin 0.6, AST 71 H, ALT 74, Alkaline Phosphatase 93, Troponin I < 0.01, Total Protein 8.0, Albumin 4.5, Globulin 3.5 H, Albumin/Globulin Ratio 1.3, Lipase 60, Serum HCG, Qual Negative 11/10/24 07:25 11/10/24 07:25 Response Orders (Tests/Meds): ED MEDICATIONS Generic Name Dose Route Start Last Admin Trade Name Freq PRN Reason Stop Dose Admin Sodium Chloride 8 ml 11/10/24 07:33 Sodium Chloride 0.9% 10ml Vial IV 12/10/24 07:32 NEEDED PRN dilute pepcid Discontinued Medications Generic Name Dose Route Start Last Admin Trade Name Freq PRN Reason Stop Dose Admin Diazepam 2.5 mg 11/10/24 07:33 11/10/24 07:39 Diazepam 5mg Tablet PO 11/10/24 07:34 2.5 mg ONCE ONE Administration Famotidine 20 mg 11/10/24 07:33 11/10/24 07:39 Famotidine 20mg/2ml Vial IV 11/10/24 07:34 20 mg ONCE ONE Administration ORDERS Category Date Time Status Portable CXR [XR chest portable] Stat Exams 11/10/24 07:33 Taken CBC Man Diff [Complete Blood Count Man Dif] Stat Lab 11/10/24 07:25 Completed CMP [Comprehensive Metabolic Panel] Stat Lab 11/10/24 07:25 Completed HCG Qualitative, Serum Stat Lab 11/10/24 07:25 Completed HIV Combo Stat Lab 11/10/24 07:33 Ordered Hepatitis C Ab Qual. W/ RFX Stat Lab 11/10/24 07:33 Ordered Lipase Stat Lab 11/10/24 07:25 Completed Troponin I Stat Lab 11/10/24 07:25 Completed ECG Data Tracing #1: Attestation: I reviewed this ECG and interpreted as documented below: ECG Narrative: EKG personally interpreted by me demonstrates normal sinus rhythm with a rate of 72 bpm, normal axis, no LA prolongation, narrow QRS, no QTc prolongation. No ST elevation or depression. No overt signs of ischemia or arrhythmia MDM Narrative Medical Decision Narrative: In summary, this is a 34-year-old female patient who is presenting to the emergency department today for chest pain. This patient's comorbidities include hypothyroidism, GERD, and anxiety. On initial evaluation of the patient she was sitting upright in no acute distress and was nontoxic in appearance. She is hemodynamically stable, saturating well on room air, and is neurologically intact. On physical examination her heart and lungs are clear to auscultation bilaterally. She has no epigastric or upper quadrant abdominal tenderness. No signs of warren peritonitis. Her radial pulses are equal and symmetric bilaterally. She has no lower extremity erythema or edema. She does appear quite anxious and states that she feels as if her anxiety is worse this morning. Differential diagnosis includes ACS/WI, pneumonia, pleurisy, pancreatitis, , panic disorder, GERD, among others. Workup was initiated with hematologic labs as well as a chest x-ray. We also obtained an EKG. Please see EKG interpretation above Labs personally interpreted by me demonstrate no actionable abnormalities. The patient's initial troponin is undetectably low and her pain has been persistent for 2 weeks and worse today so she will not necessitate a delta troponin. Her lipase is within normal limits. She is not . No significant electrolyte derangements or evidence of acute kidney injury. Chest x-ray was personally interpreted by me and demonstrates no lobar consolidation or pleural effusion. No evidence of spontaneous pneumothorax. We did treat the patient with 2.5 mg of diazepam as well as 20 mg of Pepcid. On repeat reassessment she states that her pain has improved. She also appears much more calm at this time and provides additional history stating that she has had this pain chronically since she was a teenager and she became particularly more concerned today when she began experiencing the numbness in her right arm and wanted to ensure that she is not having a heart attack. At this time this patient is not experiencing acute coronary syndrome or myocardial infarction. She is ultimately reassured by this workup. I have strongly urged her to be evaluated by her primary care physician for follow-up given the chronicity of this pain. At this time all questions have been answered and all parties are agreeable with the decision to discharge home
[2024-11-10] MEDS: FAMOTIDINE 20MG/2ML VIAL 20 MG IV (07:39)
[2024-11-10] MEDS: diazePAM 5MG TABLET 2.5 MG PO (07:39)
--- OUTSIDE RECORDS SUMMARY | 2024-11-10 07:41 | XMS_ITS | Data Portability ---
Author Organization [employer] Address [address] [place] [address] Assessment No assessment recorded. Plan of Treatment Reminders Order Date Submit Date Provider Last Modified By Organization Details Last Modified Time Details Appointments None recorded. Lab None recorded. Referral None recorded. Procedures None recorded. Surgeries None recorded. Imaging None recorded. Medication Orders triamcinolo ne acetonide 0.1 % topical cream 2024 025 [facility], [address] [place] [address], [address], 5 15:16:44 Pristiq 50 mg tablet,exte nded release 2024 025 [facility], [address] [place] [address], [address], 5 15:16:47 Dasetta 1/35 (28) 1 mg-35 mcg tablet 2024 025 [facility], [address] [place] [address], [place], [address], 5 15:16:49 Dasetta 7/7/7 (28) 0.5 mg(7)/0.75 mg(7)/1 mg(7)-35 mcg tablet 2024 025 [facility], [address] [place] [address], [address], 5 15:16:50 guanfacine ER 1 mg tablet,exte nded release 24 hr 2024 025 [facility], [address] [place] [address], [facility], [place], [address], 15:16:45 oxybutynin chloride ER 5 mg tablet,exte nded release 24 hr 2024 025 [facility], [address] [place] [address], [facility], [place], [address], 15:16:44 quetiapine 25 mg tablet 2024 025 [facility], [address] [place] [address], [place], [address], 15:26:54 levothyroxi ne 50 mcg tablet 2024 025 [facility], [address] [place] [address], [place], [address], 15:16:52 Patient TargetsNo targets recorded. Patient Instructions Encounter Date Encounter Id Patient Instructions Last Modified By Organization Details Last Modified Time 07/21/2024 [id number] attention defici t hyperactivity disorder (ADHD) in adults: care instructions Not available 07/21/2024 15:15:55 Stress Incontinence: Care Instructions [email or web address] Not available 07/21/2024 15:15:55 learning about mood disorders [email or web address] Not available 07/21/2024 15:17:59 hypothyroidism: care instructions [email or web address] Not available 07/21/2024 15:16:45 mental health assessment* Not available 07/21/2024 15:15:57 MHI Packet Adult [email or web address] Not available 07/21/2024 15:15:55 Patient needs labs, further workup, multiple other issues but 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 Results Created Date Observation Date Name Description Value Unit Range Abnormal Flag Note LastModifiedBy Organization Detail LastModifiedTime Result Notes None recorded. Problems Name Problem SNOMED Code Status Onset Date Resolution Date Notes Provider Name and Address Organization Details Recorded Time Urinary incontinence 053577003 Active 2024 MAYANK Salguero [address] [place] [address], [address], [employer] 5 15:07:48 Eczema 65279746 Active 2024 MAYANK Salguero [address] [place] [address], [address] 8, [employer] 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 5 15:08:43 Self-mutilatio n 236620399 Active 2024 MAYANK Salguero [address] [place] [address], [address] 8, [employer] 5 15:08:55 Hypothyroidism 94372905 Active 2024 [place] [address] [place] [address], [address] 8, [employer] 5 15:16:29 Generalized anxiety disorder 76398584 Active 2024 MAYANK Salguero [address] [place] [address], [address] 8, [employer] 5 15:17:35 Depressive disorder 98122999 Active 2024 MAYANK Salguero [address] [place] [address], [address] 8, [employer] 5 15:17:38 Problem Notes None recorded. Procedures 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 Date Name Laterality Status Provider Name and Address Organization Details Recorded Time [facility] [place] [employer] 07/21/2024 14:48:09 [facility] [employer] 07/21/2024 14:48:30 Imaging Results None recorded. Procedure Notes None recorded. Medical Equipment None Reported. Allergies No known drug allergies Medications Name Sig Start Date Stop Date Status Note LastModified by Organization Details LastModified Time quetiapine 25 mg tablet TAKE 1 TABLET BY MOUTH AT BEDTIME 2024 active Not Available Not Available Not Avai lable metformin 500 mg tablet 07/21 completed Not Available Not Available Not Available azithromyci n 250 mg tablet 07/21 completed Not Available Not Available Not Available fluconazole 150 mg tablet 07/21 completed Not Available Not Available Not Available triamcinolo ne acetonide 0.1 % topical cream APPLY A THIN LAYER TO THE AFFECTED AREA(S) BY TOPICAL ROUTE 2 TIMES PER DAY 2024 active Not Available Not Available Not Avai lable spironolact one 25 mg tablet 07/21 completed Not Available Not Available Not Available dicyclomine 20 mg tablet 07/21 completed Not Available Not Available Not Available levothyroxi ne 50 mcg tablet TAKE 1 TABLET BY MOUTH ONCE DAILY 2024 active Not Available Not Available Not Avai lable paroxetine 20 mg tablet 07/21 completed Not Available Not Available Not Available oxybutynin chloride ER 5 mg tablet,exte nded release 24 hr Take 1 tablet every day by oral route for 90 days. 2024 active Not Available Not Available Not Avai lable omeprazole 20 mg capsule,del ayed release active Not Available Not Available Not Available mupirocin 2 % topical ointment 07/21 completed Not Available Not Available Not Available methylpredn isolone 4 mg tablets in a dose pack 07/21 completed Not Available Not Available Not Available bromphenira mine-pseudo ephedrine-D M 2 mg-30 mg-10 mg/5 mL oral syrup 07/21 completed Not Available Not Available Not Available ondansetron 4 mg disintegrat ing tablet 07/21 completed Not Available Not Available Not Available dicyclomine 10 mg capsule 07/21 completed Not Available Not Available Not Available spironolact one 50 mg tablet 07/21 completed Not Available Not Available Not Available amoxicillin 875 mg-potassiu m clavulanate 125 mg tablet 07/21 completed Not Available Not Available Not Available Ventolin HFA 90 mcg/actuati on aerosol inhaler active Not Available Not Available Not Available nitrofurant oin monohydrate /macrocryst als 100 mg capsule 07/21 completed Not Available Not Available Not Available Pristiq 50 mg tablet,exte nded release Take 1 tablet every day by oral route for 30 days. 2024 active Not Available Not Available Not Avai lable guanfacine ER 1 mg tablet,exte nded release 24 hr Take 1 tablet every day by oral route for 30 days. 2024 active Not Available Not Available Not Avai lable Dasetta 1/35 (28) 1 mg-35 mcg tablet Take 1 tablet every day by oral route for 28 days. 07/21 completed Not Available Not Available Not Available Dasetta 7/7/7 (28) 0.5 mg(7)/0.75 mg(7)/1 mg(7)-35 mcg tablet Take 1 tablet every day by oral route for 28 days. 2024 active Not Available Not Available Not Avai lable melatonin 3 mg capsule Take by oral route. active Not Available Not Available No t Available Vitals Date Recorded Body weight Body mass index (BMI) Body height Heart rate Oxygen saturation Oxygen saturation in Arterial blood by Pulse oximetry Body temperature Systolic And Diastolic Systolic And Diastolic Provider Name and Address Organization Details Last Updated DateTime 877902. 28 g 49.9 kg/m2 157.48 cm 86 /min 97 % 97 % 97.5 [degF] 146/74 mm[Hg] 142/86 mm[Hg] [employer]. 14:42:17 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 Question Answer Notes LastModified by Organizat ion Details LastModified Time Tobacco Smoking Status Current Every Day Smoker [employer]. 07/21/2024 14:45:51 Do You Have An Advance Directive? No Information not available 07/21/2024 Is Your Home Air Conditioned? Yes Information not available 07/21/2024 Are You Blind Or Do You Have Difficulty Seeing? No Information not available 07/21/2024 What Is Your Level Of Caffeine Consumption? Heavy Information not available 07/21/2024 Are You A Caregiver? Yes Information not available 07/21/2024 Have You Been To An Area Known To Be High Risk For COVID-19? No Information not available 07/21/2024 Are You Deaf Or Do You Have Serious Difficulty Hearing? No Information not available 07/21/2024 What Type Of Diet Are You Following? REGULAR Information not available 07/21/2024 Have There Been Any Changes To Your Family Or Social Situation? No Information no t available 07/21/2024 Which Of Your Hands Is Dominant? Right Information not available 07/21/2024 Do You Have A Medical Power Of Interactive Media Marketing Specialist? No Information not available 07/21/2024 What Was The Date Of Your Most Recent Tobacco Screening? 07/21/2024 Information not available 07/21/2024 Do You Have Any Pets? Yes Information not available 07/21/2024 What Is Your Relationship Status? Information not available 07/21/2024 Do You Use Your Seat Belt Or Car Seat Routinely? Yes Information not available 07/21/2024 Are You Sexually Active? Yes Information not available 07/21/2024 Do You Have Smoke And Carbon Monoxide Detectors In Your Home? Yes Information not available 07/21/2024 At What Age Did You Start Smoking Tobacco? 18 Information not available 07/21/2024 Are You Passively Exposed To Smoke? Yes Information no t available 07/21/2024 Are There Any Smokers In Your House? Yes Information not available 07/21/2024 How Much Tobacco Do You Smoke? 1 PPD Information not available 07/21/2024 Do You Participate In Social Media? Yes Information not available 07/21/2024 Has Tobacco Cessation Counseling Been Provided? Yes Information not available 07/21/2024 On What Date Was Tobacco Cessation Counseling Provided? 07/21/2024 Information not available 07/21/2024 Have You Recently Traveled Abroad? No Information not available 07/21/2024 Do You Have Difficulty Walking Or Climbing Stairs? No Information not available 07/21/2024 Are You Currently In School? No Information not available 07/21/2024 What Contraceptive Method Was Reported At Start Of This Visit? Combined Oral Contraceptive Pills Information not available 07/21/2024 Do You Have Any Dietary Restrictions? No Information not available 07/21/2024 Sex: Unknown Functional Status Question Answer Note LastModified by [employer] Details LastModified Time Do you use any illicit or recreational drugs? No Information not available 07/21/2024 Do you or have you ever used any other forms of tobacco or nicotine? No Information not available 07/21/2024 What is your level of alcohol consumption? Occasional Information not available 07/21/2024 Are you currently employed? No Information not available 07/21/2024 Do you have transportation difficulties? No Information not available 07/21/2024 Are you able to walk? YESWOREST Information not available 07/21/2024 Do you have difficulty doing errands alone? No Information not available 07/21/2024 Are you able to care for yourself? Yes Information n ot available 07/21/2024 Do you have difficulty dressing or bathing? No Information not available 07/21/2024 Mental Status Question Answer Note LastModified by Organizat [employer] Details LastModified Time Do you feel stressed (tense, restless, nervous, or anxious, or unable to sleep at night)? [id number] Information not available 07/21/2024 Do you have difficulty concentrating, remembering or making decisions? No Information no t available 07/21/2024 Family History Relationship Description Onset Age of this Age Resolved Age Notes LastModified by Organization Details LastModified Time Maternal Grandfather Malignant neoplasm of lung Not available 2024 14:44:50 Maternal Grandmother Hypertensive disorder Not available 2024 14:45:01 Medical History Condition Response Anxiety Disorder Y ADD/ADHD Y Eczema Y Bladder or Kidney Problems Y Depression Y Gynecological History Statement/Question Response Date of LMP 06/27/2024 Sexually Active? Y Menses Monthly Y Date of Last Pap Smear Current Control Method BCPs Age at Menarche 14 Most Recent Mammogram LMP Approximate Obstetrics History GPAL:G 2 P 2 0 0 2 Type Value Full Term 2 Living 2 Total 2 Immunizations Vaccine Type Date Status Note Provider Nam e and Address Organization Details Recorded Time IPV 7 completed Melissa Vice null, [employer] 07/21/2024 14:34:45 MMR 6 completed Melissa Vice null, [employer] 07/21/2024 14:34:45 Tdap 7 completed Melissa Vice null, [employer] 07/21/2024 14:34:45 varicella 7 completed Melissa Vice null, [employer] 07/21/2024 14:34:45 DTP 6 completed Melissa Vice null, [employer] 07/21/2024 14:34:45 OPV 6 completed Melissa Vice null, [employer] 07/21/2024 14:34:45 HPV, quadrivalent 8 completed Melissa Vice null, [employer] 07/21/2024 14:34:45 HPV, quadrivalent 7 completed Melissa Vice null, [employer] 07/21/2024 14:34:45 HPV, quadrivalent 7 completed Melissa Vice null, [employer] 07/21/2024 14:34:45 Td (adult), 2 Lf tetanus toxoid, preservative free, adsorbed 3 completed Melissa Vice null, [employer] 07/21/2024 14:34:45 Hep B, adolescent or pediatric 0 completed Melissa Vice null, [employer] 07/21/2024 14:34:45 Hep B, adolescent or pediatric 7 completed Melissa Vice null, [place] - [employer] 07/21/2024 14:34:45 Hep B, adolescent or pediatric 7 completed Melissa álvarez, [facility] [employer] 07/21/2024 14:34:45 Past Encounters Encounter ID Performer Location Encounter Start Date Encounter Closed Date Diagnosis/Indication Diagnosis SNOMED-CT Code Diagnosis ICD10 Code Diagnosis Note [id number] MAYANK Salguero [facility] [address] [place] [address] 07/21/2024 13:56:56 07/21/2024 16:08:13 Counseling 120751689 Z71.9 Urinary incontinence 165 412458 R32 Will contact [facility] for incontinen ce supplies Eczema 96744549 L30.9 Attention deficit hyperactivity disorder, predominantly inattentive type 59822940 F90.0 Trial TenexWill likely need stimulant - possibly Vyvanse Self-mutilation 95688059 6 R45.88 Trial Pristiq for anxiety/de pression Renewal of prescription 075787831 Z76.0 Hypothyroidism 21473475 E03.9 Generalize d anxiety disorder 64579887 F41.1 Depressive disorder 3548 9007 F32.A Health Concerns Section Related Observation LastModified by Organization Detai ls LastModified Time None Recorded Concern Status LastModified by Organization Details LastModified Time None Recorded Advance Directives Directive N: Payers Insurance Date Sequence Insurance Name Policy Number Policy Patricia Covered Member ID Patricia Member ID Guarantor Name 08/20/2024 1 [facility] (MEDICAID HMO) Brenna Jain [id number] Brenna Jain Notes Date Note Type Note Provider Name and Address Organization Details Recorded Time 07/21/2024 text/html Patient presents to establish care at [facility].SHe has a list of things she would like to address, but has to get her children from school soon.She states she was treated for ADHD as a child and thinks a lot of her symptom stem from that. She was treated with Adderall as a child/teen. Hasn't been on meds for years. Really struggles to focus, complete tasks, is always stressed, can't get things done, forgets important things, gets irritated easily. She also feels depressed and anxious and isn't sure how much of that is the ADHD.Has eczema on her neck and hands.Has bilateral plantar fasciitisHas urinary incontinence and wonders if there are meds to help with thatHas bilateral carpal tunnelHas chronic neck and back issues MAYANK Salguero [address] [place] [address], [place], [address], [facility] [employer] 07/22/2024 15:50:56 OBGyn Episode No OBEpisode recorded.
--- OUTSIDE RECORDS SUMMARY | 2024-11-10 07:41 | XMS_ITS | Clinical Summary ---
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
[2024-11-10 07:45] VITALS: BP 142/75; PULSE 65; RESP 15; O2SAT 97
[2024-11-10 07:57] LABS: Hematocrit 43.8 % (37.0-47.0); Hemoglobin 14.3 g/dL (12.2-16.2); Mean Corpuscular HGB Conc 32.6 g/dL (31.8-35.4); Mean Corpuscular Hemoglobin 27.2 pg (27.0-31.2); Mean Corpuscular Volume 83.3 fl (81-99); Platelet Count 453 K/mm3 (142-424); Red Blood Count 5.26 M/mm3 (4.20-5.40); White Blood Count 10.9 K/mm3 (4.8-10.8)
[2024-11-10 07:59] LABS: Alanine Aminotransferase 74 U/L (12-78); Albumin Level 4.5 g/dl (3.5-5.0); Albumin/Globulin Ratio 1.3 (1.1-1.8); Alkaline Phosphatase 93 U/L (38-126); Anion Gap 14.1 mEq/L (5-15); Aspartate Amino Transferase 71 U/L (14-36); Bilirubin,Total 0.6 mg/dl (0.2-1.3); Blood Urea Nitrogen 8 mg/dl (7-17); Calcium 9.7 mg/dl (8.4-10.2); Carbon Dioxide 26 mmol/L (22.0-30.0); Chloride 101 mmol/L (98-107); Creatinine Clearance Estimated 79 mL/min (50-200); Creatinine,Serum 0.80 mg/dl (0.52-1.04); Estimated Glomerular Filt Rate 83 ml/min (>60); GFR (African American) 100 ML/MIN (>60); Globulin 3.5 g/dL (1.3-3.2); Glucose 101 mg/dl (74-100); Lipase 60 U/L (23-300); Potassium 4.1 mmoL/L (3.5-5.1); Sodium 137 mmol/L (136-145); Total Protein,Serum 8.0 g/dl (6.3-8.2)
[2024-11-10 08:03] LABS: HCG Qualitative, Serum Negative (Negative)
[2024-11-10 08:12] LABS: Troponin I < 0.01 ng/ml (0.00-0.034)
[2024-11-10 08:15] VITALS: BP 136/72; PULSE 59; RESP 14; O2SAT 97
[2024-11-10 08:31] VITALS: BP 145/81; PULSE 60; RESP 18; O2SAT 96
[2024-11-10 08:46] LABS: Total Cells Counted 100
[2024-11-10 08:47] LABS: RBC Morphology Normal
--- NOTE | 2024-11-10 08:48 | PC.NURSE ---
pt reports improvement in chest pain. states it is currently a 1/10 reports feeling less anxious and is resting well
[2024-11-10 09:01] VITALS: BP 136/76; PULSE 65; RESP 18; O2SAT 98
[2024-11-10 09:32] VITALS: BP 141/78; PULSE 62; RESP 18; TEMP 36.7; O2SAT 97
[2024-11-10 13:11] LABS: Hepatitis C Ab Qual. W/ RFX NEGATIVE (Negative)
== END 2024-11-10 09:33 | disposition home or self-care (01) ==
PROVIDERS: Emergency Provider Student in an Organized Health Care Education/Training Program; PCP Physician Assistant
DX: R07.9 Chest pain, unspecified (principal); F31.9 Bipolar disorder, unspecified; K21.9 Gastro-esophageal reflux disease without esophagitis; E03.9 Hypothyroidism, unspecified; F17.210 Nicotine dependence, cigarettes, uncomplicated
CPT/HCPCS: 71045; 80053; 83690; 84484; 84703; 85007; 85014; 85018; 85048; 85049; 86803; 87389; 93005; 96374; 99285

== ENCOUNTER 2025-01-11 16:23 | Outpatient (CLI) | payer MEDICAID, SELFPAY ==
--- OUTSIDE RECORDS SUMMARY | 2025-01-12 16:25 | XMS_ITS | Clinical Summary ---
Author Organization Healthcare Address [address] [place] [address] Care Team Providers Care Outpatient Receptionist Name Role Phone Unavailable Primary Care Provider [...]
== END 2025-01-11 23:59 | disposition home or self-care (01) ==
LOC: LAB.DROPOF 01-12 16:24
PROVIDERS: PCP Physician Assistant; Visit Provider Student in an Organized Health Care Education/Training Program
DX: N39.0 Urinary tract infection, site not specified (principal)
CPT/HCPCS: 87086